=== PATIENT | female | born 1935 | race Caucasian/White ===

== ENCOUNTER 2022-11-03 16:22 | Inpatient (IN) ==
--- NOTE | 2022-11-03 17:17 | ED Triage Note ---
Date of Service November 03, 2022 History of Present Illness This patient was briefly evaluated while in triage. An abbreviated physical exam was performed. This patient is a 87-year-old Male who presents to the ED for evaluation of hematuria, confusion and weakness. Patient states she does not know why she is here, she believes she has arthritis and states her grandson wanted her evaluated. Notes from her facility state that she was recently treated for a UTI and has been confused and weak. Her family is concerned she has cancer and wants her evaluated. Physical Exam VITALS: Vitals are noted on the nurse's note and reviewed by myself. GENERAL: This is an 87-year-old, in no acute distress, sitting in a wheelchair in triage. SKIN: The skin was without rashes. HEART: Regular rate and rhythm without murmurs gallops or rubs. LUNGS: Clear to auscultation bilaterally without wheezes, rales or rhonchi. NEURO: Patient is pleasantly confused. Initial orders for labs and / or imaging were placed and patient was placed in the waiting area until a bed is available. Please see further documentation for the full ED course. MDM / Impression Impression Impression: Urinary tract infection, Confusion
--- NOTE | 2022-11-03 17:59 | XRay Report ---
XR chest 1V portable CLINICAL HISTORY: weakness, confusion TECHNIQUE: Single frontal radiograph of the chest was obtained. Comparison: None available at the time of this dictation. FINDINGS: No lines and tubes are seen. Calcified aortic knob is seen. Elevated right hemidiaphragm is seen. No evidence of pleural effusion or pneumothorax. IMPRESSION: No acute chest disease. ACT 112: Negative or not required by law. Electronically signed by: Balaji Swan M.D. 11/03/2022 5:57 PM
[2022-11-03 19:43] LABS: Basophils # (auto) 0.06 K/uL (0.00-0.20); Basophils % (auto) 0.4 %; Eosinophils # (auto) 0.07 K/uL (0.00-0.50); Eosinophils % (auto) 0.5 %; Hematocrit (blood only) 31.5 % (37.0-47.0); Hemoglobin 10.1 g/dl (12.0-16.0); Immature Granulocytes # (auto) 0.27 K/uL (0.01-0.20); Lymphocytes # (auto) 1.02 K/uL (1.20-3.40); Lymphocytes % (auto) 7.5 %; Mean Corpuscular Hemoglobin 30.1 pg (25.0-34.0); Mean Corpuscular Hgb Conc 32.1 g/dL (32.0-36.0); Mean Platelet Volume 9.6 fL (9.4-12.4); Monocytes # (auto) 0.81 K/uL (0.11-0.59); Neutrophils # (auto) 11.34 K/uL (1.40-6.50); Neutrophils % (auto) 83.6 %; Platelet Count 293 K/uL (130-400); RDW Coefficient of Variation 13.9 % (11.5-14.5); RDW Standard Deviation 47.3 fL (36.4-46.3); Red Blood Count 3.35 M/uL (4.20-5.40); White Blood Count 13.57 K/ul (4.8-10.8)
[2022-11-03 19:50] LABS: Appearance Urine Cloudy (Clear); Bacteria Urine Automated Negative (Negative); Bilirubin Urine Negative (Negative); Blood Urine 2+ (Negative); Color Urine Yellow; Epithelial Cell Urine Auto >30 /lpf (0-5); Glucose Urine UA Negative (Negative); Ketones Urine Negative (Negative); Leukocyte Esterase Urine 1+ (Negative); Nitrite Urine Negative (Negative); Protein Urine 2+ (Negative); Specific Gravity Urine 1.009 (1.000-1.030); Urobilinogen Urine Negative (Negative)
[2022-11-03 20:01] LABS: Alanine Aminotransferase 6 U/L (7-52); Albumin Globulin Ratio 1.3 (0.9-2); Albumin Level 4.3 gm/dl (3.4-5.0); Alkaline Phosphatase 42 U/L (34-104); Anion Gap 9 (3-11); Aspartate Aminotransferase 11 U/L (13-39); BUN Creatinine Ratio 25.7 (10-20); Bilirubin,Total 0.4 mg/dl (0.2-1.0); Blood Urea Nitrogen 26 mg/dl (6-23); Calcium 9.4 mg/dl (8.6-10.3); Carbon Dioxide 22 mmol/L (21-32); Chloride 104 mmol/L (98-107); Globulin 3.3 gm/dl (2.5-4.0); Glucose 105 mg/dl (70-99(Fasting)); Magnesium 2.1 mg/dl (1.7-2.4); Potassium 4.9 mmol/L (3.5-5.1); Sodium 135 mmol/L (136-145); Total Protein 7.6 gm/dl (6.0-8.3)
--- NOTE | 2022-11-03 20:04 | Emergency Department Note ---
History of Present Illness General Chief complaint: Hematuria Stated complaint: BLOOD IN URINE Time Seen by Provider: 11/03/22 19:51 History of Present Illness 87-year-old female presents emergency department reportedly was at [facility] 2 times this week for urinary tract infection and was recently at [facility] urolog. She had urinary retention issues at the time and had a Peres catheter placed by [facility] urolog. Patient is currently on Cipro. Patient [facility] the [facility] today as she was concerned about why she had the Peres catheter and was slightly more confused. Patient provides an excellent history stating that she recently had the Peres catheter placed she is from [place] and that she was brought in by a wheelchair van. Patient has no current complaints of nausea vomiting abdominal pain or fever. There are no other mitigating or alleviating factors Home Medications Medication Instructions Recorded Confirmed Type Unobtainable 10/22/22 10/22/22 History Allergies Allergy/AdvReac Type Severity Reaction Status Date / Time Unable to Assess Allergy Verified 11/03/22 21:15 Past Med/Surg History Social History Smoking Status: Former smoker Hx Alcohol Use: No Hx Substance Use: No Cell Maker Required: No Beliefs That Will Affect Care: Amish Current Living Situation Comment: unsure Feels Safe at Home: Yes Assistive Devices: Cane and Walker Immunizations: Past medical history reviewed in her chart however patient has a history of hypertension, urinary tract infection, arthritis Review of Systems A total of 10 systems reviewed and were otherwise negative Constitutional: no fever and no body aches Physical Exam Vital Signs Vital Signs - 24 hr 11/03/22 17:11 11/03/22 20:37 11/03/22 20:23 Temperature 36.5 C Temperature Source Temporal Artery Scan Pulse Rate 73 60 Pulse Rate [Finger] 58 L Pulse Rhythm Regular Pulse Rhythm [Finger] Regular Respiratory Rate 20 19 Respiratory Effort / Characteristics Non-Labored Spontaneous Respiratory Depth Normal Blood Pressure 130/64 Blood Pressure [Left Arm] 148/66 H Blood Pressure Mean 86 Blood Pressure Mean [Left Arm] 93 Pulse Oximetry 97 98 Oxygen Delivery Method Room Air Sepsis Recent Fever Within 48 Hours No Sepsis New/Unexplained Change in Mental Status No Sepsis Action Taken by Nursing No Action Required GENERAL: Patient is awake alert in no acute distress patient is resting comfortably and showing no signs of anxiety EYES: The conjunctivae are clear. The pupils are round and reactive. EARS, NOSE, MOUTH AND THROAT: The nose is without any evidence of any deformity. Mucous membranes are moist. Tongue is midline. NECK: The neck is nontender and supple. RESPIRATORY: Normal respiratory effort is noted there is no evidence of wheezing rhonchi or rales CARDIOVASCULAR: Regular rate and rhythm noted there no murmurs rubs or gallops normal S1 normal S2. GASTROINTESTINAL: The abdomen is soft. Abdomen is nontender. No rebound rigidity or guarding : Patient has a Peres catheter present BACK: No midline tenderness or or step-off noted range of motion in flexion extension as well as rotation no signs of muscle spasm noted MUSCULOSKELETAL/EXTREMITIES: There is no evidence of gross deformity full range of motion is noted in the hips and shoulders. SKIN: There is no obvious evidence of any rash. There are no petechiae, pallor or cyanosis noted. NEUROLOGIC: Patient is awake alert and oriented x3 strength is symmetric Course Administered Medications Discontinued Medications Ceftriaxone Sodium (Rocephin) 2,000 mg in 70 mls @ 140 mls/hr IV NOW STA Stop: 11/03/22 20:34 Last Infusion: 11/03/22 21:41 Dose: 0 mls/hr Documented By: Admin: 11/03/22 21:00 Dose: 140 mls/hr Documented By: SHARON Miscellaneous (Patient's Height &/Or Weight Needed) 1 each N/A NOW ONE Stop: 11/03/22 22:46 Last Admin: 11/03/22 23:05 Dose: 1 each Documented By: DEBBIE Medical Decision Making Medical Records Attestation: I reviewed the patient's medical records. Home Medications Current Medication List: was personally reviewed by me Laboratory Data Attestation: I reviewed the patient's lab results. Lab results interpreted by me show urinary tract infection 11/03/22 19:04 11/03/22 19:04 Lab Results 11/03/22 11/03/22 11/03/22 Range/Units 19:04 19:04 19:04 WBC 13.57 H (4.8-10.8) K/ul RBC 3.35 L (4.20-5.40) M/uL Hgb 10.1 L (12.0-16.0) g/dl Hct 31.5 L (37.0-47.0) % MCV 94.0 (80.0-100.0) fL MCH 30.1 (25.0-34.0) pg MCHC 32.1 (32.0-36.0) g/dL RDW Std Deviation 47.3 H (36.4-46.3) fL RDW Coeff of Mirna 13.9 (11.5-14.5) % Plt Count 293 (130-400) K/uL MPV 9.6 (9.4-12.4) fL Immature Gran % (Auto) 2.0 % Neut % (Auto) 83.6 % Lymph % (Auto) 7.5 % [place] % (Auto) 6.0 % Eos % (Auto) 0.5 % Baso % (Auto) 0.4 % Neut # (Auto) 11.34 H (1.40-6.50) K/uL Lymph # (Auto) 1.02 L (1.20-3.40) K/uL [place]idan # (Auto) 0.81 H (0.11-0.59) K/uL Eos # (Auto) 0.07 (0.00-0.50) K/uL Baso # (Auto) 0.06 (0.00-0.20) K/uL Immature Gran # (Auto) 0.27 H (0.01-0.20) K/uL PT 11.0 (9.0-12.0) Seconds INR 1.0 (0.9-1.1) APTT 26.0 (21.0-31.0) Seconds PTT Ratio 0.9 Sodium 135 L (136-145) mmol/L Potassium 4.9 (3.5-5.1) mmol/L Chloride 104 (98-107) mmol/L Carbon Dioxide 22 (21-32) mmol/L Anion Gap 9 (3-11) BUN 26 H (6-23) mg/dl Creatinine 1.01 (0.6-1.2) mg/dl Est Cr Clr Drug Dosing Not Reportable Est GFR ( Amer) 58.0 ml/min Est GFR (Non-Af Amer) 50.0 ml/min BUN/Creatinine Ratio 25.7 H (10-20) Glucose 105 H (70-99(Fasting)) mg/dl Lactate (0.4-2.0) mmol/L Calcium 9.4 (8.6-10.3) mg/dl Magnesium 2.1 (1.7-2.4) mg/dl Total Bilirubin 0.4 (0.2-1.0) mg/dl AST 11 L (13-39) U/L ALT 6 L (7-52) U/L Alkaline Phosphatase 42 (34-104) U/L Total Protein 7.6 (6.0-8.3) gm/dl Albumin 4.3 (3.4-5.0) gm/dl Globulin 3.3 (2.5-4.0) gm/dl Albumin/Globulin Ratio 1.3 (0.9-2) Urine Color Urine Appearance (Clear) Urine pH (4.5-7.5) Ur Specific [place] (1.000-1.030) Urine Protein (Negative) Urine Glucose (UA) (Negative) Urine Ketones (Negative) Urine Blood (Negative) Urine Nitrite (Negative) Urine Bilirubin (Negative) Urine Urobilinogen (Negative) Ur Leukocyte Esterase (Negative) Urine WBC (Auto) (0-5) /hpf Urine RBC (Auto) (0-4) /hpf U Hyaline Cast (Auto) (0-5) /lpf U Epithel Cells (Auto) (0-5) /lpf Urine Bacteria (Auto) (Negative) Ur Renal Epithelial Cell Urine Yeast (None Prsent) SARS-CoV-2, RNA, NAAT (NEGATIVE) 11/03/22 11/03/22 11/03/22 Range/Units 19:18 20:22 20:28 WBC (4.8-10.8) K/ul RBC (4.20-5.40) M/uL Hgb (12.0-16.0) g/dl Hct (37.0-47.0) % MCV (80.0-100.0) fL MCH (25.0-34.0) pg MCHC (32.0-36.0) g/dL RDW Std Deviation (36.4-46.3) fL RDW Coeff of Mirna (11.5-14.5) % Plt Count (130-400) K/uL MPV (9.4-12.4) fL Immature Gran % (Auto) % Neut % (Auto) % Lymph % (Auto) % [place] % (Auto) % Eos % (Auto) % Baso % (Auto) % Neut # (Auto) (1.40-6.50) K/uL Lymph # (Auto) (1.20-3.40) K/uL [place] # (Auto) (0.11-0.59) K/uL Eos # (Auto) (0.00-0.50) K/uL Baso # (Auto) (0.00-0.20) K/uL Immature Gran # (Auto) (0.01-0.20) K/uL PT (9.0-12.0) Seconds INR (0.9-1.1) APTT (21.0-31.0) Seconds PTT Ratio Sodium (136-145) mmol/L Potassium (3.5-5.1) mmol/L Chloride (98-107) mmol/L Carbon Dioxide (21-32) mmol/L Anion Gap (3-11) BUN (6-23) mg/dl Creatinine (0.6-1.2) mg/dl Est Cr Clr Drug Dosing Est GFR ( Amer) ml/min Est GFR (Non-Af Amer) ml/min BUN/Creatinine Ratio (10-20) Glucose (70-99(Fasting)) mg/dl Lactate 1.0 (0.4-2.0) mmol/L Calcium (8.6-10.3) mg/dl Magnesium (1.7-2.4) mg/dl Total Bilirubin (0.2-1.0) mg/dl AST (13-39) U/L ALT (7-52) U/L Alkaline Phosphatase (34-104) U/L Total Protein (6.0-8.3) gm/dl Albumin (3.4-5.0) gm/dl Globulin (2.5-4.0) gm/dl Albumin/Globulin Ratio (0.9-2) Urine Color Yellow Urine Appearance Cloudy A (Clear) Urine pH 5.0 (4.5-7.5) Ur Specific [place] 1.009 (1.000-1.030) Urine Protein 2+ H (Negative) Urine Glucose (UA) Negative (Negative) Urine Ketones Negative (Negative) Urine Blood 2+ H (Negative) Urine Nitrite Negative (Negative) Urine Bilirubin Negative (Negative) Urine Urobilinogen Negative (Negative) Ur Leukocyte Esterase 1+ H (Negative) Urine WBC (Auto) 10-30 H (0-5) /hpf Urine RBC (Auto) 10-30 H (0-4) /hpf U Hyaline Cast (Auto) 1-5 (0-5) /lpf U Epithel Cells (Auto) >30 H (0-5) /lpf Urine Bacteria (Auto) Negative (Negative) Ur Renal Epithelial Cell Not Reportable Urine Yeast Present A (None Prsent) SARS-CoV-2, RNA, NAAT NEGATIVE (NEGATIVE) Imaging Data Attestation: I personally reviewed and interpreted this imaging study as follows: My Impression: Chest x-ray interpreted by me negative for infiltrate Radiologist's Impression: Chest X-Ray 11/03/22 17:13 XR chest 1V portable CLINICAL HISTORY: weakness, confusion TECHNIQUE: Single frontal radiograph of the chest was obtained. Comparison: None available at the time of this dictation. FINDINGS: No lines and tubes are seen. Calcified aortic knob is seen. Elevated right hemidiaphragm is seen. No evidence of pleural effusion or pneumothorax. IMPRESSION: No acute chest disease. ACT 112: Negative or not required by law. Electronically signed by: Balaji Swan M.D. 11/03/2022 5:57 PM [facility] Narrative Medical decision making differential diagnosis includes urinary tract infection, Peres catheter problems, pyelonephritis, sepsis, metabolic derangement, dehy dration Plan is to check labs, urinalysis, labs were ordered by the provider in triage prior to my arrival External medical records from the [facility] were reviewed by me Impression & Plan Urinary tract infection, Confusion Discharge Plan Visit Data Chief Complaint: Hematuria Stated Complaint: BLOOD IN URINE ED Provider: Grzegorz Babcock Discharge Problem: Urinary tract infection, Confusion Patient Disposition: Admitted As Inpatient Discharge Instructions Interventions: ED Discharge Assessment Last Done: 11/03/22 22:33
[2022-11-03] MEDS ORDERED: cefTRIAXone SODIUM 2,000 MG/70 ML BAG IV STA (20:05)
[2022-11-03 20:48] LABS: Partial Thromboplastin Ratio 0.9
--- NOTE | 2022-11-03 21:25 | History & Physical Report ---
Date of Service November 03, 2022 Assessment & Plan (1) Hematuria: Plan: -Hematuria likely multifactorial- possible UTI in setting of suspected anatomic cause underlying urinary retention -Coagulation studies unremarkable -Hgb 10.1 on admission, unclear if at baseline -Given UA findings and confusion, will continue treatment of possible UTI with ceftriaxone -UCx pending, BCx pending -Urology consulted for AM -Pt made NPO midnight in case of potential procedure in AM with urology -Trend CBC (2) Urinary retention with incomplete bladder emptying: Plan: -Normal renal function on admission -Peres catheter in place -Bladder scan PRN -Urology consult as above (3) Confusion: Plan: -I suspect pt has cognitive impairment secondary to dementia given her inconsistent provision of history and fixation on her grandson's "instigation" of her hospitalization -This may represent acute confusion given possible UTI as well -This will need to be clarified with family in AM Plan FENGI: Regular Code status: Full DVT prophylaxis: SCDs given hematuria Isolation: None Disposition: Medical/surgical History of Present Illness Chief Complaint: Hematuria Primary Care Provider: NO PCP Pt is 87 yo F with PMH arthritis presenting with hematuria. Pt resides in [place] by herself at [facility], states her daughter and grandson (whom she refers to as "instigating" this series of events) sought to have her evaluated at [facility] for ongoing urinary issues and arranged to have her brought from [place] to [place] today through the [facility] transport. She had previously received care at [facility] but states it has been several years since she has seen a physician. She reports only arthritis as part of her medical history and denies any allergies or home medications. She denies dysuria and frequency, though does state hematuria has improved. She is unsure why she has a Peres catheter placed. Per chart review from ED note and 10/22 [facility] urology report, pt was reportedly at [facility] in [place] twice this week for a UTI. Pt is reportedly taking ciprofloxacin per chart review but she cannot recall being on any antibiotics. I attempted to contact her family members for further clarification but was not able to reach them. Pt seen by urology on 10/22 for urinary incontinence- reportedly was on Myrbetriq + oxybutynin in past to no relief, had PVR with 700 ccs, and Peres placed in office. Plans made for CT urogram and cystoscopy to evaluate urinary retention Pt arrived to ER hemodynamically stable. Initial evaluation significant for WBC 13.6, Hgb 10.1, unremarkable BMP, coagulation studies. UA positive for LE, bacteria, WBCs, RBCs, blood, epithelial cells. ER interventions include ceftriaxone. At present, pt reports no complaints, states hematuria has improved. She is unsure about why she is hospitalized and stated multiple times her grandson "instigated" this hospitalization. Allergies Allergy/AdvReac Type Severity Reaction Status Date / Time adhesive tape Allergy Unknown Verified 11/04/22 15:41 infliximab [From Remicade] Allergy Unknown Verified 11/04/22 15:41 Home Medications Medication Instructions Recorded Confirmed Type Head And Shoulders See Rx Instructions .Route .COMPLEX 11/04/22 11/04/22 History acetaminophen 325 mg tablet 650 mg PO Q4H PRN pain or fever 11/04/22 11/04/22 History >100 acetaminophen 500 mg tablet 500 mg PO QID pain 11/04/22 11/04/22 History amitriptyline 50 mg tablet 50 mg PO HS depression 11/04/22 11/04/22 History camphor-menthol 0.2 %-3.5 % See Rx Instructions .Route .COMPLEX 11/04/22 11/04/22 History topical gel cholecalciferol (vitamin D3) 50 50 mcg PO DAILY 11/04/22 11/04/22 History mcg (2,000 unit) tablet (Vitamin D3) ciprofloxacin HCl 500 mg tablet 500 mg PO Q12H UTI 11/04/22 11/04/22 History clonidine 0.2 mg/24 hr weekly 1 patch transdermal .FRIDAYS HTN 11/04/22 11/04/22 History transdermal patch cyanocobalamin (vitamin B-12) 1,000 mcg PO DAILY 11/04/22 11/04/22 History 1,000 mcg tablet,extended release hydralazine 50 mg tablet 50 mg PO BID HTN 11/04/22 11/04/22 History hydroxychloroquine 200 mg tablet 200 mg PO BID rheumatoid arthritis 11/04/22 11/04/22 History levothyroxine 100 mcg tablet 100 mcg PO QAM 11/04/22 11/04/22 History lisinopril 10 mg tablet 5 mg PO DAILY 11/04/22 11/04/22 History loperamide 2 mg capsule 2 mg PO Q4H PRN Diarrhea 11/04/22 11/04/22 History magnesium hydroxide 400 mg/5 mL 30 ml PO DAILY PRN If no BM x 3 11/04/22 11/04/22 History oral suspension (Milk of Magnesia) days metoprolol succinate 50 mg 50 mg PO QAM HTN 11/04/22 11/04/22 History tablet,extended release 24 hr miconazole nitrate 2 % vaginal See Rx Instructions .Route 11/04/22 11/04/22 History cream (Monistat 7) .COMPLEX YEAST INFECTION peppermint oil 90 mg 180 mg PO TID diarrhea 11/04/22 11/04/22 History capsule,delayed,extended release (IBgard) phenyleph-shark liver 1 applic MI QID PRN Pain 11/04/22 11/04/22 History hvq-jngkep-kau rectal cream prednisone 2.5 mg tablet See Rx Instructions .Route 11/04/22 11/04/22 History .COMPLEX RHEUMATOID ARTHRITIS prednisone 5 mg tablet See Rx Instructions .Route 11/04/22 11/04/22 History .COMPLEX RHEUMATOID ARTHRITIS spironolactone 25 mg tablet 25 mg PO DAILY HTN 11/04/22 11/04/22 History tramadol 50 mg tablet 50 mg PO Q6H PRN Pain 11/04/22 11/04/22 History Past Med/Surg History Medical History (Updated 11/04/22 @ 19:14 by Kaia Stern MD) Dementia Depression HTN (hypertension), benign Urinary incontinence Urinary retention with incomplete bladder emptying Social History Smoking Status: Former smoker Hx Alcohol Use: No Hx Substance Use: No Communication Ability: Impaired Termite Renewal Inspector Required: No Beliefs That Will Affect Care: Nondenominational Current Living Situation Comment: unsure Feels Safe at Home: Yes Assistive Devices: Cane and Walker Review of Systems Review of Systems: Per HPI Physical Exam Physical Exam: General: well-appearing, no acute distress HEENT: PERRL, EOMI, conjunctivae clear without injection, anicteric sclerae, moist mucous membranes, clear oropharynx without exudate or erythema Neck: supple, trachea midline, no thyromegaly, no JVD, no cervical lymphadenopathy CV: RRR, normal S1 and S2, no murmurs Resp: CTAB, no increased work of breathing, no crackles or wheezes Abd: Soft, nontender, nondistended, no guarding or rebound, no hepatosplenomegaly : Peres with pink-tinged urine MSK: Normal bulk of all four extremities Neuro: AOx3, no focal motor or sensory deficits Skin: no rashes or lesions, warm and dry Ext: no LE peripheral edema or erythema, capillary refill <2s in all four extremities, 2+ LE peripheral pulses b/l Results & Data Results & Data Vital Signs (Past 12 Hours) Vital Signs Temp Pulse Pulse Resp BP BP Pulse Ox 11/03/22 20:23 58 L 19 148/66 H 98 11/03/22 20:37 60 11/03/22 17:11 36.5 C 73 20 130/64 97 O2 Del Method 11/03/22 20:23 11/03/22 20:37 11/03/22 17:11 Room Air Code Status & VTE Plan VTE Prophylaxis Plan VTE Prophylaxis will be ordered: Yes Supervising Physician Co-Signing Physician Notes Attending addendum: I have physically seen this patient, have supervised the medical residents activities, and agree with the H&P unless as otherwise noted. Assessment and Plan: Hematuria/urinary retention/UTI- Continue Peres catheter On Cipro as outpatient, which will be held Follow urine culture and sensitivity Continue ceftriaxone 2 g IV daily IVF's as noted Consult urology, who has been following patient in the outpatient setting Confusion- Likely metabolic encephalopathy from above, aggravating underlying dementia Remaining orders and notations as noted Resident Activity Tracking Resident Involvement: Resident Care Provided Care Provided: Adult [facility]
[2022-11-03] MEDS ORDERED: ONDANSETRON INJ 2 MG/ML 2 ML VIAL IV PRN (22:37)
[2022-11-03] MEDS ORDERED: Patient's HEIGHT &/or WEIGHT Needed ONE (22:45)
[2022-11-03] MEDS: ACETAMINOPHEN 325 MG TAB PO PRN (23:15)
[2022-11-04 07:27] LABS: Hematocrit (blood only) 26.7 % (37.0-47.0); Hemoglobin 8.6 g/dl (12.0-16.0); Mean Corpuscular Hemoglobin 29.5 pg (25.0-34.0); Mean Corpuscular Hgb Conc 32.2 g/dL (32.0-36.0); Mean Corpuscular Volume 91.4 fL (80.0-100.0); Mean Platelet Volume 9.8 fL (9.4-12.4); Platelet Count 215 K/uL (130-400); RDW Standard Deviation 47.1 fL (36.4-46.3); Red Blood Count 2.92 M/uL (4.20-5.40)
--- NOTE | 2022-11-04 07:38 | Urology Consultation ---
Date of Consultation November 04, 2022 Assessment & Plan (1) Urinary retention with incomplete bladder emptying: (2) Hematuria: (3) Urinary tract infection: 87-year-old female admitted for confusion, hematuria, and suspected urinary tract infection. Afebrile and hemodynamically stable Labs reviewedcreatinine 0.95, WBC 9.1, hemoglobin 8.6 Urine and blood cultures are pending - follow cultures Continue broad-spectrum antibiotics and narrow per sensitivity data when available Hematuria seems to be clearingcontinue to monitor Maintain Peres catheter Recommend imaging with CT A/P wo con now CT reviewed and no obstruction visualized No acute surgical intervention warranted at this time - patient can resume diet Continue supportive care, antibiotics and medical management per hospital service Plan to continue work-up with cystoscopy as outpatient pending clinical course will follow History of Present Illness Reason for Consultation: Hematuria, incontinence Requesting Physician: Dr. Horvath Attending Physician: Kaia Stern MD History of Present Illness This is an 87-year-old female who presented to the emergency department on 11/03/[address] [facility] for evaluation of confusion, weakness, hematuria. She reportedly was evaluated at [facility] in [place] 2 times this week for urinary tract infection and was on Ciprofloxacin. She was recently evaluated at [facility] urology on 10/22/2022 for incontinence and was found to have urinary retention, Peres catheter was placed during visit with plans for further work-up with CT and cystoscopy. On arrival, she was afebrile and hemodynamically stable. Lab work reviewed and showed WBC 13.57, hemoglobin 10.1, creatinine 1.01, sodium 135. Lactate 1.1. Urinalysis notable for 2+ protein, 2+ blood, 1+ LE, 10-30 WBC, 10-30 RBC, >30 epithelial cells, negative for bacteria, yeast present. She was treated with IV ceftriaxone in the emergency department. She was admitted for further evaluation and management. Urology is consulted for hematuria and incontinence. Chart reviewed: Afebrile, today's labs - creatinine 0.95, WBC 9.10, Hgb 8.6. UC and BCx pending. On IV Ceftriaxone. Patient seen and examined at bedside this morning. She is awake, alert and resting in bed. Denies flank, abdominal or suprapubic discomfort. Peres patent and draining clear yellow urine, 1 small clot noted in tubing which easily passed through. Denies nausea, vomiting, fever or chills. History and ROS are limited due to cognitive status. She is not oriented to time or situation. She does not recall being seen in the outpatient urology office. She tells me she arrived from [place] yesterday. Allergies Allergy/AdvReac Type Severity Reaction Status Date / Time Unable to Assess Allergy Verified 11/03/22 21:15 Home Medications Medication Instructions Recorded Confirmed Type Unobtainable 10/22/22 10/22/22 History Patient History Social History Smoking Status: Former smoker Hx Alcohol Use: No Hx Substance Use: No Scaffold Worker Required: No Beliefs That Will Affect Care: Jehovah'S Witness Current Living Situation Comment: unsure Feels Safe at Home: Yes Assistive Devices: Cane and Walker Review of Systems Review of Systems: Unobtainable due to cognitive status Physical Exam Physical Exam: General: well-appearing, no acute distress HEENT: Normocephalic Pulmonary: Nonlabored respirations Abdomen: Nondistended Extremities: Moves all 4 spontaneously, deformities of finger joints Neuro: No gross deficits Psych: alert and oriented to person Skin: Warm, dry, no rashes noted : Peres patent and draining clear yellow urine, 1 small clot noted in tubing which easily passed through Results & Data Vital Signs (Past 12 Hours) Vital Signs Temp Pulse Pulse Resp BP Pulse Ox O2 Del Method 11/03/22 22:54 36.6 C 64 16 153/54 H 95 Room Air 11/03/22 22:41 36.6 C 64 18 153/54 H 95 Room Air 11/03/22 22:00 62 17 165/84 H 97 11/03/22 20:23 58 L 19 148/66 H 98 11/03/22 20:37 60 PG Care Time/CCT Total # of Minutes Spent Total Time Spent with Patient: Total time spent is greater than 50% in coordination of care (as documented) at patient's floor/unit and/or counseling patient: Coding Level of Care Code 31045 INT INP/OBS CARE 2/55MIN Diagnoses Urinary retention with incomplete bladder emptying R33.9 Hematuria R31.9 Urinary tract infection N39.0 Time Spent (min) 60
[2022-11-04 07:43] LABS: BUN Creatinine Ratio 24.2 (10-20); Calcium 8.6 mg/dl (8.6-10.3); Est GFR (African American) 62.4 ml/min; Est GFR (Non-African American) 53.9 ml/min; Potassium 4.4 mmol/L (3.5-5.1)
[2022-11-04] MEDS: cefTRIAXone SODIUM 1,000 MG in DEXTROSE 5% 50 ML IV SCH (08:36)
--- NOTE | 2022-11-04 09:43 | CT Scan Report ---
CT abd pelvis wo con CLINICAL HISTORY: Urinary retention, hematuria TECHNIQUE: Helical axial images of the abdomen and pelvis were obtained. Automated dose lowering tech niques and/or adjustment according to patient size were utilized for this exam. This exam was perfor med without intravenous contrast. CT DOSE: 1051.71 mGy.cm COMPARISON: None available at the time of this dictation. FINDINGS: Lower chest: Bibasilar atelectasis versus scarring is seen. There is a 4 mm pleural-based nodule in the left lower lobe (series 3 image 34). Liver: Unremarkable. No focal lesions are seen. Gallbladder and biliary tree: No calcified gallstones. Normal caliber wall. No intra- or extrahepatic biliary ductal dilation. Pancreas: Unremarkable, no focal lesions. Spleen: Unremarkable. Adrenals: Unremarkable. Kidneys and ureters: Unremarkable. Bladder: Peres catheter is seen. Reproductive organs: Unremarkable. Bowel: A hiatal hernia is seen. Lymph nodes Retroperitoneal: Unremarkable. Pelvic: Unremarkable. Mesenteric: Unremarkable. Peritoneum: Trace pelvic free fluid. Nonspecific pelvic calcifications are seen, likely chronic. Vessels: Atherosclerotic calcifications are seen. Abdominal wall: Unremarkable. Bones: Degenerative changes in the visualized spine. Postsurgical changes of decompression are seen i n the lower lumbar spine. 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 Old healed fractures of the left hem ipelvis are seen along with extensive degenerative changes of the sacroiliac joints. IMPRESSION: No acute abnormality and in particular no evidence of urothelial lesion in this patient with hematuri a. Evaluation of the bladder is limited by Peres catheter placement. ACT 112: Negative or not required by law. Electronically signed by: Balaji Swan M.D. 11/04/2022 9:40 AM
[2022-11-04] MEDS: ACETAMINOPHEN 325 MG TAB PO PRN (11:25)
[2022-11-04] MEDS ORDERED: MAGNESIUM HYDROXIDE SUSP 30 ML UDC PO PRN (15:12)
[2022-11-04] MEDS ORDERED: traMADol HCL 50 MG TABLET PO PRN (15:12)
--- NOTE | 2022-11-04 15:24 | Hospitalist Progress Note ---
Date of Service November 04, 2022 Assessment & Plan (1) Hematuria: Plan: -Hematuria likely multifactorial- possible UTI in setting of suspected anatomic cause underlying urinary retention -Given dementia, there is possibility she may be pulling at the Peres catheter and causing trauma -Hematuria is now cleared up Hemoglobin dropped to 8.6 from 10.1 but this may be somewhat hemodilutional. Unclear baseline of hemoglobin -Coagulation studies unremarkable -She was on Cipro twice daily given to her by the ER in [place] the day prior to admission -Continue ceftriaxone and follow urine cultures, blood cultures CT abdomen/pelvis without significant findings -Needs outpatient cystoscopy and CT urogram of the kidneys -Appreciate urology consultation (2) Urinary tract infection: Plan: As noted above (3) Metabolic encephalopathy: Plan: Metabolic encephalopathy Secondary to UTI and urinary retention with hematuria Improving, now at baseline dementia (4) Anemia: Plan: Somewhat chronic most likely but unclear baseline Normocytic Check iron studies, B12, folate, TSH in the morning Some blood loss anemia from hematuria as well (5) Urinary retention with incomplete bladder emptying: Plan: -Normal renal function on admission -Peres catheter in place since urology office 2 weeks ago -Bladder scan PRN -Urology consult as above (6) HTN (hypertension), benign: Plan: Blood pressures are stable Restart home blood pressure medicines of clonidine patch, hydralazine, lisinopril, spironolactone (7) Dementia: Plan: Stable, lives in personal care facility Supportive care (8) Depression: Plan: Restart home amitriptyline (9) Rheumatoid arthritis: Plan: With chronic deformities of the hands and feet -Restart home hydroxychloroquine, daily prednisone No stress dose steroids needed Tramadol and Tylenol as needed for pain as a home med Plan DVT prophylaxis-SCDs given hematuria Disposition-continued stay, PT/OT consults placed and will need SNF placement most likely Admission and Anticipated Discharge Date Admission Date: November 03, 2022 Subjective Patient reports she feels well. No further blood in the Peres catheter. She thinks she just arrived here from [place] yesterday. I discussed her care with her grandson on the phone. He reports she has been living at personal usp at [facility] in [place] for the last 2 years. Patient has dementia but he thinks she is little bit more confused than usual as she has been back and forth to the ER in [place] as well as the urology office at [facility] and to the half-way facility at her complex several times over the last 2 weeks. Physical Exam Constitutional: WD/WN, vitals as above Respiratory: normal respiratory effort, lungs clear to auscultation Cardiovascular: RRR, no murmur, no edema Gastrointestinal (Abdomen): normal bowel sounds, soft, nontender, no hepatosplenomegaly Psychiatric: Orientation: alert, oriented to person and cooperative; + not oriented to place and + not oriented to time Genitourinary: Peres in place draining clear yellow urine Results & Data Results & Data Vital Signs (Past 12 Hours) Vital Signs Temp Pulse Resp BP Pulse Ox O2 Del Method 11/04/22 08:18 36.9 C 69 17 123/71 95 Room Air Laboratory Results CBC, BMP reviewed Urine culture pending Blood cultures no growth to date PG Care Time/CCT Total # of Minutes Spent Total Time Spent with Patient: Total time spent is greater than 50% in coordination of care (as documented) at patient's floor/unit and/or counseling patient: Coding Level of Care Code 64049 SUB INP/OBS CARE 2/35MIN Diagnoses Hematuria R31.9 Urinary tract infection N39.0 Metabolic encephalopathy G93.41 Anemia D64.9 Urinary retention with incomplete bladder emptying R33.9 HTN (hypertension), benign I10 Dementia F03.90 Depression F32.A Rheumatoid arthritis M06.9
[2022-11-04] MEDS: predniSONE 5 MG TAB PO SCH (16:05)
[2022-11-04] MEDS: CHECK CLONIDINE PATCH PLACEMENT SCH (16:05)
[2022-11-04] MEDS: predniSONE 2.5 MG TAB PO SCH (16:05)
[2022-11-04] MEDS: METOPROLOL SUCC 50MG EXT REL TAB PO SCH (16:06)
[2022-11-04] MEDS: SPIRONOLACTONE 25 MG TAB PO SCH (16:25)
--- NOTE | 2022-11-04 20:39 | Billing Data ---
Date of Service November 04, 2022 Coding Level of Care Code 86759 INT INP/OBS CARE
[2022-11-04] MEDS: hydrALAZINE TAB 50 MG TAB PO SCH (21:51)
[2022-11-04] MEDS: AMITRIPTYLINE HCL 50 MG TAB PO SCH (21:51)
[2022-11-04] MEDS: HYDROXYCHLOROQUINE SULFATE 200 MG TAB PO SCH (21:51)
[2022-11-05] MEDS: CHECK CLONIDINE PATCH PLACEMENT SCH ×3 (01:00→15:11)
[2022-11-05] MEDS: LEVOTHYROXINE SODIUM 100 MCG TABLET PO SCH (05:23)
[2022-11-05 07:15] LABS: Basophils # (auto) 0.08 K/uL (0.00-0.20); Basophils % (auto) 0.9 %; Eosinophils # (auto) 0.13 K/uL (0.00-0.50); Eosinophils % (auto) 1.5 %; Hemoglobin 8.9 g/dl (12.0-16.0); Immature Granulocytes # (auto) 0.27 K/uL (0.01-0.20); Immature Granulocytes % (auto) 3.1 %; Lymphocytes # (auto) 1.13 K/uL (1.20-3.40); Lymphocytes % (auto) 13.1 %; Mean Corpuscular Hemoglobin 29.6 pg (25.0-34.0); Mean Corpuscular Hgb Conc 31.8 g/dL (32.0-36.0); Mean Platelet Volume 9.7 fL (9.4-12.4); Monocytes # (auto) 0.61 K/uL (0.11-0.59); Monocytes % (auto) 7.1 %; Neutrophils # (auto) 6.38 K/uL (1.40-6.50); Neutrophils % (auto) 74.3 %; Platelet Count 223 K/uL (130-400); RDW Coefficient of Variation 13.9 % (11.5-14.5); RDW Standard Deviation 47.5 fL (36.4-46.3); Red Blood Count 3.01 M/uL (4.20-5.40)
[2022-11-05 07:38] LABS: BUN Creatinine Ratio 23.3 (10-20); Calcium 8.9 mg/dl (8.6-10.3); Creatinine Clr Calc Pharmacy 32.3 ml/min; Est GFR (African American) 56.6 ml/min; Est GFR (Non-African American) 48.8 ml/min; Magnesium 1.9 mg/dl (1.7-2.4); Potassium 4.6 mmol/L (3.5-5.1)
[2022-11-05 07:56] LABS: Ferritin 115.5 ng/ml (8-388)
[2022-11-05 08:20] LABS: Folate (Folic Acid),Ser orPlas 6.9 ng/ml (>5.38)
[2022-11-05] MEDS: cefTRIAXone SODIUM 1,000 MG in DEXTROSE 5% 50 ML IV SCH (08:51)
[2022-11-05] MEDS: CHOLECALCIFEROL 1,000 UNITS 25 MCG TAB PO SCH (08:52)
[2022-11-05] MEDS: lisinopril 5 MG TAB PO SCH (08:52)
[2022-11-05] MEDS: CYANOCOBALAMIN (B-12) 500 MCG TABLET PO SCH (08:52)
[2022-11-05] MEDS: predniSONE 2.5 MG TAB PO SCH (08:52)
[2022-11-05] MEDS: predniSONE 5 MG TAB PO SCH (08:52)
[2022-11-05] MEDS: SPIRONOLACTONE 25 MG TAB PO SCH (08:52)
[2022-11-05] MEDS: METOPROLOL SUCC 50MG EXT REL TAB PO SCH (08:52)
[2022-11-05] MEDS: HYDROXYCHLOROQUINE SULFATE 200 MG TAB PO SCH ×2 (08:52→21:02)
[2022-11-05] MEDS: hydrALAZINE TAB 50 MG TAB PO SCH ×2 (08:52→21:02)
[2022-11-05] MEDS: ACETAMINOPHEN 325 MG TAB PO PRN ×2 (08:59→13:56)
--- NOTE | 2022-11-05 09:34 | Urology Progress Note ---
Date of Service November 05, 2022 Assessment & Plan (1) Urinary retention with incomplete bladder emptying: (2) Hematuria: Plan: 87-year-old female admitted for confusion, hematuria, and suspected urinary tract infection. Afebrile and hemodynamically stable Labs reviewedcreatinine 1.03, WBC 8.6, hemoglobin 8.9 Urine culture showing pin point growth re-incubating BCx showing no growth x 24 hours Continue broad-spectrum antibiotics and narrow per sensitivity data when available Hematuria has cleared Maintain Peres catheter until urology follow-up Continue supportive care, antibiotics and medical management per hospital service Cultures may return negative since she was on antibiotics prior to arrival Can obtain outside cultures if available to direct ongoing treatment Plan to continue work-up with cystoscopy as outpatient pending clinical course will sign off, contact our service with any additional questions Admission and Anticipated Discharge Date Admission Date: November 03, 2022 Subjective Patient seen and examined at bedside this morning, chart reviewed No acute issues overnight Peres patent and draining clear yellow urine No abdominal, suprapubic or flank discomfort Denies nausea, vomiting, fever or chills Review of Systems Constitutional: as per Subjective / HPI Gastrointestinal: as per Subjective / HPI Genitourinary: as per Subjective / HPI Physical Exam Physical Exam: General: well-appearing, no acute distress HEENT: Normocephalic Pulmonary: Nonlabored respirations Abdomen: Nondistended Extremities: Moves all 4 spontaneously, deformities of finger joints Neuro: No gross deficits Psych: alert and oriented to person Skin: Warm, dry, no rashes noted : Peres patent and draining clear yellow urine Results & Data Vital Signs (Past 12 Hours) Vital Signs Temp Pulse Resp BP Pulse Ox O2 Del Method 11/05/22 08:50 74 11/05/22 07:46 36.5 C 57 L 20 158/79 H 97 Room Air 11/04/22 21:49 37.2 C 66 18 118/59 L 95 Room Air PG Care Time/CCT Total # of Minutes Spent Total Time Spent with Patient: Total time spent is greater than 50% in coordination of care (as documented) at patient's floor/unit and/or counseling patient: Coding Level of Care Code 38846 SUB INP/OBS CARE 1/25MIN Diagnoses Urinary retention with incomplete bladder emptying R33.9 Hematuria R31.9
--- NOTE | 2022-11-05 16:32 | Hospitalist Progress Note ---
Date of Service November 05, 2022 Assessment & Plan (1) Hematuria: Plan: -Hematuria likely multifactorial- possible UTI in setting of suspected anatomic cause underlying urinary retention -Given dementia, there is possibility she may be pulling at the Peres catheter and causing trauma -Hematuria is now cleared up Hemoglobin dropped to 8.6 from 10.1 but this may be somewhat hemodilutional. Unclear baseline of hemoglobin. Hgb remains stable today at 8.9 -Coagulation studies unremarkable -She was on Cipro twice daily given to her by the ER in [place] the day prior to admission -Continue ceftriaxone;urine culture with Kelli likely colonization or contamination and does not need treatment -follow blood cultures-NGTD -CT abdomen/pelvis without significant findings -Needs outpatient cystoscopy and CT urogram of the kidneys-f/u after abx course completed-likely in 1-2 weeks -Appreciate urology consultation (2) Urinary tract infection: Plan: As noted above (3) Metabolic encephalopathy: Plan: Metabolic encephalopathy Secondary to UTI and urinary retention with hematuria Improving, now with baseline dementia (4) Anemia: Plan: Somewhat chronic most likely but unclear baseline Normocytic, stable today at 8.9 Checked iron studies, B12, folate, TSH -all normal Some blood loss anemia from hematuria as well (5) Urinary retention with incomplete bladder emptying: Plan: -Normal renal function on admission -Peres catheter in place since urology office 2 weeks ago -Bladder scan PRN -Urology consult as above (6) HTN (hypertension), benign: Plan: Blood pressures are stable cont home blood pressure medicines of clonidine patch, hydralazine, lisinopril, spironolactone (7) Dementia: Plan: Stable, lives in personal care facility Supportive care Remains convinced that she still lives in [place] after grandson reports she has lived in [facility] in [place] since 2020 (8) Depression: Plan: cont home amitriptyline (9) Rheumatoid arthritis: Plan: With chronic deformities of the hands and feet Cont home hydroxychloroquine, daily prednisone No stress dose steroids needed Tramadol and Tylenol as needed for pain as a home med Plan DVT prophylaxis-SCDs given hematuria Disposition-medically stable for discharge but continued stay while awaiting bed at [facility]--> plan for discharge tomorrow at [address] [facility] at [facility] Admission and Anticipated Discharge Date Admission Date: November 03, 2022 Subjective Pt remains argumentative and is convinced that she lives in [place] and wants to know how she will get back to her Urology appt in [place] if she's living in [place]. Otherwise states she walked around today, is eating, denies abd pains. Says she feels totally fine. No blood in urine Physical Exam Constitutional: WD/WN, vitals as above Respiratory: normal respiratory effort, lungs clear to auscultation Cardiovascular: RRR, no murmur, no edema Gastrointestinal (Abdomen): normal bowel sounds, soft, nontender, no hepatosplenomegaly Psychiatric: Orientation: alert, oriented to person and cooperative; + not oriented to place and + not oriented to time Results & Data Results & Data Vital Signs (Past 12 Hours) Vital Signs Temp Pulse Resp BP Pulse Ox O2 Del Method 11/05/22 16:01 37.1 C 69 18 105/67 93 Room Air 11/05/22 08:50 74 11/05/22 07:46 36.5 C 57 L 20 158/79 H 97 Room Air Laboratory Results CBC, BMP, iron studies, B12, folate, TSH all reviewed Ur cx with Kelli PG Care Time/CCT Total # of Minutes Spent Total Time Spent with Patient: Total time spent is greater than 50% in coordination of care (as documented) at patient's floor/unit and/or counseling patient: Coding Level of Care Code 66309 SUB INP/OBS CARE 1/25MIN Diagnoses Hematuria R31.9 Urinary tract infection N39.0 Metabolic encephalopathy G93.41 Anemia D64.9 Urinary retention with incomplete bladder emptying R33.9 HTN (hypertension), benign I10 Dementia F03.90 Depression F32.A Rheumatoid arthritis M06.9
[2022-11-05] MEDS: AMITRIPTYLINE HCL 50 MG TAB PO SCH (21:02)
[2022-11-06] MEDS: CHECK CLONIDINE PATCH PLACEMENT SCH ×2 (00:45→09:41)
[2022-11-06] MEDS: LEVOTHYROXINE SODIUM 100 MCG TABLET PO SCH (06:02)
[2022-11-06] MEDS: ACETAMINOPHEN 325 MG TAB PO PRN (09:33)
[2022-11-06] MEDS: CHOLECALCIFEROL 1,000 UNITS 25 MCG TAB PO SCH (09:42)
[2022-11-06] MEDS: hydrALAZINE TAB 50 MG TAB PO SCH (09:42)
[2022-11-06] MEDS: lisinopril 5 MG TAB PO SCH (09:42)
[2022-11-06] MEDS: HYDROXYCHLOROQUINE SULFATE 200 MG TAB PO SCH (09:42)
[2022-11-06] MEDS: predniSONE 5 MG TAB PO SCH (09:42)
[2022-11-06] MEDS: METOPROLOL SUCC 50MG EXT REL TAB PO SCH (09:42)
[2022-11-06] MEDS: CYANOCOBALAMIN (B-12) 500 MCG TABLET PO SCH (09:43)
[2022-11-06] MEDS: SPIRONOLACTONE 25 MG TAB PO SCH (09:43)
[2022-11-06] MEDS: cefTRIAXone SODIUM 1,000 MG in DEXTROSE 5% 50 ML IV SCH (09:51)
[2022-11-06] MEDS: predniSONE 2.5 MG TAB PO SCH (10:45)
--- NOTE | 2022-11-06 12:41 | Discharge Summary ---
Discharge Summary Date of Service November 06, 2022 Notes For Next Care Provider Medication Changes From Visit Cipro 500mg po bid x 7 days Admission HPI Per Admitting Provider Pt is 87 yo F with PMH arthritis presenting with hematuria. Pt resides in [place] by herself [facility], states her daughter and grandson (whom she refers to as "instigating" this series of events) sought to have her evaluated at [facility] for ongoing urinary issues and arranged to have her brought from [place] to [place] today through the [facility]'s transport. She had previously received care at [facility] but states it has been several years since she has seen a physician. She reports only arthritis as part of her medical history and denies any allergies or home medications. She denies dysuria and frequency, though does state hematuria has improved. She is unsure why she has a Peres catheter placed. Per chart review from ED note and 10/22 [facility] urology report, pt was reportedly at [facility] in [place] twice this week for a UTI. Pt is reportedly taking ciprofloxacin per chart review but she cannot recall being on any antibiotics. I attempted to contact her family members for further clarification but was not able to reach them. Pt seen by urology on 10/22 for urinary incontinence- reportedly was on Myrbetriq + oxybutynin in past to no relief, had PVR with 700 ccs, and Peres placed in office. Plans made for CT urogram and cystoscopy to evaluate urinary retention Pt arrived to ER hemodynamically stable. Initial evaluation significant for WBC 13.6, Hgb 10.1, unremarkable BMP, coagulation studies. UA positive for LE, bacteria, WBCs, RBCs, blood, epithelial cells. ER interventions include ceftriaxone. At present, pt reports no complaints, states hematuria has improved. She is unsure about why she is hospitalized and stated multiple times her grandson "instigated" this hospitalization. Principal Dx & Hospital Course #1 = Principal Diagnosis (1) Hematuria: -Hematuria likely multifactorial- possible UTI in setting of suspected anatomic cause underlying urinary retention -Given dementia, there is possibility she may be pulling at the Peres catheter and causing trauma -Hematuria is now cleared up Hemoglobin dropped to 8.6 from 10.1 but this may be somewhat hemodilutional. Unclear baseline of hemoglobin. Hgb remained stable at 8.9 -Coagulation studies unremarkable -She was on Cipro twice daily given to her by the ER in [place] the day prior to admission -was treated with ceftriaxone;urine culture here with Kelli likely colonization or contamination and does not need treatment. Urine culture obtained from [facility] shows >100k Enterobacter cloacae resistent to Augmentin,cefazolin, cefuroxime,cefoxitin. Enterobacter does have cAmp inducible resistance to 3rd gen cephaloporins as well--> dc to SNF on Cipro 500mg po bid x 7 more days -Urology recommended not changing out Peres due to very difficult placement -follow blood cultures-NGTD -CT abdomen/pelvis without significant findings -Needs outpatient cystoscopy and CT urogram of the kidneys-f/u after abx course completed-likely in 1-2 weeks -Appreciate urology consultation (2) Urinary tract infection: As noted above (3) Metabolic encephalopathy: Metabolic encephalopathy Secondary to UTI and urinary retention with hematuria Improving, now with baseline dementia (4) Anemia: Somewhat chronic most likely but unclear baseline Normocytic, stable at 8.9 Checked iron studies, B12, folate, TSH -all normal Some blood loss anemia from hematuria as well check CBC in 1-2 days at SNF (5) Urinary retention with incomplete bladder emptying: -Normal renal function on admission -Peres catheter in place since urology office 2 weeks ago -Bladder scan PRN -Urology consult as above (6) HTN (hypertension), benign: Blood pressures are stable cont home blood pressure medicines of clonidine patch, hydralazine, lisinopril, spironolactone (7) Dementia: Stable, lives in personal care facility Supportive care Remains convinced that she still lives in [place] after grandson reports she has lived in [facility] [place] since 2020 (8) Depression: cont home amitriptyline (9) Rheumatoid arthritis: With chronic deformities of the hands and feet Cont home hydroxychloroquine but HOLD x 7 days while on Cipro due to QT prolongation potential -continue daily prednisone No stress dose steroids needed Tramadol and Tylenol as needed for pain as a home med Plan DVT prophylaxis-SCDs given hematuria Disposition-medically stable for discharge to SNF Discharge Exam Constitutional WD/WN, vitals as above Respiratory normal respiratory effort, lungs clear to auscultation Cardiovascular RRR, no murmur, no edema Gastrointestinal (Abdomen) normal bowel sounds, soft, nontender, no hepatosplenomegaly Psychiatric Orientation: alert, oriented to person and cooperative; + not oriented to place and + not oriented to time Genitourinary Peres in palce and with clear yellow urine Updated Medication List Medication Instructions Recorded Confirmed Type Head And Shoulders See Rx Instructions .Route .COMPLEX 11/04/22 11/04/22 History acetaminophen 325 mg tablet 650 mg PO Q4H PRN pain or fever 11/04/22 11/04/22 History >100 acetaminophen 500 mg tablet 500 mg PO QID pain 11/04/22 11/04/22 History amitriptyline 50 mg tablet 50 mg PO HS depression 11/04/22 11/04/22 History camphor-menthol 0.2 %-3.5 % See Rx Instructions .Route .COMPLEX 11/04/22 11/04/22 History topical gel cholecalciferol (vitamin D3) 50 50 mcg PO DAILY 11/04/22 11/04/22 History mcg (2,000 unit) tablet (Vitamin D3) clonidine 0.2 mg/24 hr weekly 1 patch transdermal .FRIDAYS HTN 11/04/22 11/04/22 History transdermal patch cyanocobalamin (vitamin B-12) 1,000 mcg PO DAILY 11/04/22 11/04/22 History 1,000 mcg tablet,extended release hydralazine 50 mg tablet 50 mg PO BID HTN 11/04/22 11/04/22 History hydroxychloroquine 200 mg tablet 200 mg PO BID rheumatoid arthritis 11/04/22 11/04/22 History levothyroxine 100 mcg tablet 100 mcg PO QAM 11/04/22 11/04/22 History lisinopril 10 mg tablet 5 mg PO DAILY 11/04/22 11/04/22 History loperamide 2 mg capsule 2 mg PO Q4H PRN Diarrhea 11/04/22 11/04/22 History magnesium hydroxide 400 mg/5 mL 30 ml PO DAILY PRN If no BM x 3 11/04/22 History oral suspension (Milk of Magnesia) days metoprolol succinate 50 mg 50 mg PO QAM HTN 11/04/22 11/04/22 History tablet,extended release 24 hr miconazole nitrate 2 % vaginal See Rx Instructions .Route 11/04/22 11/04/22 History cream (Monistat 7) .COMPLEX YEAST INFECTION peppermint oil 90 mg 180 mg PO TID diarrhea 11/04/22 11/04/22 History capsule,delayed,extended release (IBgard) phenyleph-shark liver 1 applic MA QID PRN Pain 11/04/22 11/04/22 History xvu-pjitwm-cuy rectal cream prednisone 2.5 mg tablet See Rx Instructions .Route 11/04/22 11/04/22 History .COMPLEX RHEUMATOID ARTHRITIS prednisone 5 mg tablet See Rx Instructions .Route 11/04/22 11/04/22 History .COMPLEX RHEUMATOID ARTHRITIS spironolactone 25 mg tablet 25 mg PO DAILY HTN 11/04/22 11/04/22 History tramadol 50 mg tablet 50 mg PO Q6H PRN Pain 11/04/22 11/04/22 History ciprofloxacin HCl 500 mg tablet 500 mg PO Q12H UTI #14 tabs 11/06/22 Rx Hospital Stay Data Consultations 11/03/22 20:42 ED Decision to Admit Stat 11/03/22 22:37 Consult Urology Routine Diagnostic Imagining Performed 11/04/22 07:37 CT abd pelvis wo con Urgent Pending Results Patient Have Any Pending Studies at Discharge: Yes (Final blood cultures-no growth to date) Discharge Instructions Given to Patient (Per Discharging Provider) Please continue taking Cipro x 1 more week for your Enterobacter cloacae UTI. Keep the catheter in until seen by Urology. Please check a CBC and BMP in 2-3 days for the anemia and to check kidney function. Total Time Total Time Spent Total Time Spent (In Minutes): 35 min Coding Level of Care Code 83534 INP/OBS DISCH >30 MIN Diagnoses Hematuria R31.9 Urinary tract infection N39.0 Metabolic encephalopathy G93.41 Anemia D64.9 Urinary retention with incomplete bladder emptying R33.9 HTN (hypertension), benign I10 Dementia F03.90 Depression F32.A Rheumatoid arthritis M06.9
== END 2022-11-06 14:45 | DRG 689 ==
LOC: ED 16:22 → 3W 21:22 → SUATTDRO 21:22 → 3W 22:33

== ENCOUNTER 2023-01-05 15:41 | Inpatient (IN) ==
--- NOTE | 2023-01-05 16:15 | ED Triage Note ---
Date of Service January 05, 2023 History of Present Illness This patient was briefly evaluated while in triage. An abbreviated physical exam was performed. This patient is a 87-year-old Female who presents to the ED for evaluation of blood in her urine. The patient reports that she has a Peres catheter in place for 2 weeks. Quick review of medical record shows that the patient was admitted to our facility in October for hematuria. Patient denies any fever or chills, chest pain, shortness of breath or significant discomfort. Physical Exam CONSTITUTIONAL: Healthy and well nourished. Alert and oriented x3. Patient does not appear in any acute distress. HEENT: No scleral icterus or conjunctival injection/pallor. RESPIRATORY: Clear to auscultation bilaterally with no wheezing, crackles, rhonchi or stridor. CARDIOVASCULAR: Regular rate and rhythm with no murmurs, rubs or gallops. GASTROINTESTINAL: Bowel sounds present in all quadrants. No abdominal tenderness to palpation. INTEGUMENTARY: No rash or other significant dermatologic conditions noted. HEMATOLOGIC: No ecchymosis or petechiae. NEUROLOGIC: No focal neurologic deficits noted. Initial orders for labs and / or imaging were placed and patient was placed in the waiting area until a bed is available. Please see further documentation for the full ED course.
[2023-01-05 17:13] LABS: Hematocrit (blood only) 21.2 % (37.0-47.0); Hemoglobin 6.4 g/dl (12.0-16.0); Mean Corpuscular Hgb Conc 30.2 g/dL (32.0-36.0); Mean Corpuscular Volume 99.5 fL (80.0-100.0); Mean Platelet Volume 9.5 fL (9.4-12.4); Platelet Count 264 K/uL (130-400); RDW Coefficient of Variation 16.9 % (11.5-14.5); RDW Standard Deviation 60.8 fL (36.4-46.3); Red Blood Count 2.13 M/uL (4.20-5.40); White Blood Count 13.11 K/ul (4.8-10.8)
[2023-01-05 17:22] LABS: Appearance Urine Cloudy (Clear); Color Urine Red; Specific Gravity Urine 1.016 (1.000-1.030)
[2023-01-05 17:26] LABS: Anisocytosis Present; Basophils # (auto) 0.04 K/uL (0.00-0.20); Basophils % (auto) 0.3 %; Eosinophils # (auto) 0.08 K/uL (0.00-0.50); Eosinophils % (auto) 0.6 %; Immature Granulocytes # (auto) 0.31 K/uL (0.01-0.20); Immature Granulocytes % (auto) 2.4 %; Lymphocytes # (auto) 0.62 K/uL (1.20-3.40); Lymphocytes % (auto) 4.7 %; Monocytes % (auto) 6.9 %; Neutrophils # (auto) 11.16 K/uL (1.40-6.50); Neutrophils % (auto) 85.1 %
[2023-01-05 17:49] LABS: Alanine Aminotransferase 6 U/L (7-52); Albumin Globulin Ratio 1.3 (0.9-2); Albumin Level 3.9 gm/dl (3.4-5.0); Alkaline Phosphatase 35 U/L (34-104); Anion Gap 9 (3-11); Aspartate Aminotransferase 9 U/L (13-39); BUN Creatinine Ratio 29.5 (10-20); Bilirubin,Total 0.2 mg/dl (0.2-1.0); Blood Urea Nitrogen 49 mg/dl (6-23); Calcium 9.2 mg/dl (8.6-10.3); Carbon Dioxide 19 mmol/L (21-32); Chloride 107 mmol/L (98-107); Est GFR (African American) 31.8 ml/min; Est GFR (Non-African American) 27.4 ml/min; Globulin 3.1 gm/dl (2.5-4.0); Glucose 141 mg/dl (70-99(Fasting)); Lipase 38 U/L (11-82); Potassium 6.2 mmol/L (3.5-5.1); Sodium 135 mmol/L (136-145)
[2023-01-05] MEDS ORDERED: SODIUM CHLORIDE 0.9% 250 ML IV PRN (18:09)
[2023-01-05] MEDS ORDERED: SODIUM CHLORIDE 0.9% 500 ML IV ONE (18:09)
[2023-01-05 18:14] LABS: Partial Thromboplastin Ratio 0.9; Partial Thromboplastin Time 25.2 Seconds (21.0-31.0); Prothrombin Time 10.8 Seconds (9.0-12.0)
--- NOTE | 2023-01-05 18:29 | Emergency Department Note ---
Impression & Plan Acute blood loss anemia, Acute kidney insufficiency, Acute hyperkalemia, Acute dehydration ED Provider Note Name: BURTON FRENCH Age: 87 Sex: Female Arrives Via: Ambulance Informant: Patient ED Provider: Thomas Carroll MD Chief Complaint: Blood in urine Impression: As per impressions above Medical Decision Makin-year-old female with extensive past medical history who apparently lives in [place] and drives to [place] to get her medical care because she likes the hospital. Patient notes that she has had increased blood into her her Peres over the last 2 to 3 weeks. She admits she has not really been eating or drinking anything for the last few weeks as well. States she was feeling ill and thus called her short haul driver who brought her to [place] for evaluation. On examination patient is pale and dehydrated appearing. Her laboratory work-up reveals acute anemia as well as elevated potassium. I suspect anemia secondary to blood loss over the last 2 to 3 weeks. She is not hypotensive or significantly tachycardic. 1 unit PRBC was initially ordered. She was also noted to be hyperkalemic EKG with questionable peaked T waves. She was given 500 mL IV fluid along with some calcium. While further fluid may be beneficial I am a bit concerned about her current anemia issues thus we will hold on further fluid bolus for now. Patient denies any abdominal pain or flank pain. We will hold off on imaging until further evaluation by specialist. Triage/Nursing Notes reviewed by Me I did review external chart of previous hospitalization during which she did have a Peres at that point. Differential:Anemia, bladder ulceration, urinary tumor, renal failure, electrolyte imbalance, infectious etiology, obstructive pathology amongst many other pathologies considered Vital Signs: reviewed and remarkable for no significant abnormalities Interventions: Saline bolus 500 mL IV, calcium 1 g IV, 1 unit PRBC Labs:ED labs Reviewed by me and remarkable for anemia, hyperkalemia, mild CR elevation EKG:As per my interpretation. Indication electrolyte imbalance. Normal sinus rhythm at 63 bpm no ectopy no ischemia. QTc 425. Questionable peaked T waves though not beyond QRS complex. No previous EKG for comparison Cardiac/Tele Monitoring: Cardiac Monitoring: An Order was placed for continuous cardiac monitoring. The monitor shows a rate of 60 with a normal sinus rhythm. Consults:Dr Rachelle CARD Hospitalist Dr Moore Nephro -agreed with approach to hydrate and calcium and then recheck electrolyte panel Plan: Disposition:Hospitalization. Condition: Good History of Present Illness: 87-year-old female arrives for evaluation of blood in urine. Patient states she has had a Peres in place for the last few months due to urinary issues. She states that she had increased bleeding over the last 2 weeks. As bleeding has not stopped she decided to be evaluated. Patient states that she lives in [place] but likes this hospital so she had her short haul driver take her here today. Patient notes she has been feeling increasingly weak and tired. She admits she probably has been eating or drinking as much recently. Denies any fevers, chills, nausea, vomiting, abdominal pain, back pain, flank pain, other bleeding or bruising. Patient is adamant she takes no blood thinners. She does admit she periodically will use ibuprofen or aspirin but does not think she used it recently. Past Medical History:See Below Home Medications:See Below Allergies:Adhesive tape, Remicade Vitals:Blood Pressure: 140/60, Pulse 60, RR 18, T 36.9C, O2 99% on RA Physical Exam: GENERAL: Patient is dehydrated and pale appearing and in mild distress. Bloody urine without clots noted. RESPIRATORY: No dyspnea. Clear to auscultation and equal bilaterally. CARDIOVASCULAR: Regular rate and rhythm.No murmur appreciated. GASTROINTESTINAL: Abdomen soft, non-tender, no peritonitis. EXTREMITIES: Normal motion all extremities, no cyanosis, no edema. NEUROLOGIC: Alert and oriented. No focal neurologic deficits appreciated SKIN: No rash, no jaundice, no diaphoresis. PSYCH: Appropriate GCS: 15 ED Course: Times/Reassessments: Multiple repeat evaluations. Patient in good spirits no complaints and awaiting blood. Thomas Carroll MD Past Med/Surg History Medical History (Updated 01/06/23 @ 17:20 by Alvaro De Anda MD) Acute kidney insufficiency Dementia Depression HTN (hypertension), benign Indwelling Peres catheter present Rheumatoid arthritis Urinary incontinence Urinary retention with incomplete bladder emptying Social History Smoking Status: Former smoker Hx Alcohol Use: No Hx Substance Use: No Preferred Language: Persian Communication Ability: Effective Shopper Insights Manager Required: No Beliefs That Will Affect Care: None Current Living Situation: Alone Current Living Situation Comment: unsure - initially she said she lived w/ her -pt is Feels Safe at Home: Yes Safety Concerns: Feels Safe At This Time Assistive Devices: Walker Assistive Devices Comment: jay Allergies Allergies Allergy/AdvReac Type Severity Reaction Status Date / Time adhesive tape Allergy Unknown ON Verified 01/05/23 18:34 [place] LIST infliximab [From Remicade] Allergy Unknown ON Verified 01/05/23 18:34 [place]uu LIST Home Meds Home Medications Medication Instructions Recorded Confirmed acetaminophen 500 mg tablet 500 mg PO QID pain 11/04/22 01/05/23 amitriptyline 50 mg tablet 50 mg PO HS depression 11/04/22 01/05/23 cholecalciferol (vitamin D3) 50 50 mcg PO QAM 11/04/22 01/05/23 mcg (2,000 unit) tablet (Vitamin D3) cyanocobalamin (vitamin B-12) 1,000 mcg PO QAM 11/04/22 01/05/23 1,000 mcg tablet,extended release hydralazine 50 mg tablet 50 mg PO BID HTN 11/04/22 01/05/23 hydroxychloroquine 200 mg tablet 200 mg PO BID rheumatoid arthritis 11/04/22 01/05/23 levothyroxine 100 mcg tablet 100 mcg PO DAILYBB 11/04/22 01/05/23 loperamide 2 mg capsule 2 mg PO Q4H PRN Diarrhea 11/04/22 01/05/23 magnesium hydroxide 400 mg/5 mL 30 ml PO DAILY PRN If no BM x 3 11/04/22 01/05/23 oral suspension (Milk of Magnesia) days metoprolol succinate 50 mg 50 mg PO QAM HTN 11/04/22 01/05/23 tablet,extended release 24 hr prednisone 2.5 mg tablet 2.5 mg PO QAM RHEUMATOID ARTHRITIS 11/04/22 01/05/23 prednisone 5 mg tablet 5 mg PO QAM RHEUMATOID ARTHRITIS 11/04/22 01/05/23 spironolactone 25 mg tablet 25 mg PO QAM HTN 11/04/22 01/05/23 tramadol 50 mg tablet 50 mg PO Q6H PRN Pain 11/04/22 01/05/23 ascorbic acid (vitamin C) 500 mg 500 mg PO BID 01/05/23 01/05/23 tablet (Vitamin C) clonidine HCl 0.1 mg tablet 0.1 mg PO BID 01/05/23 01/05/23 ferrous sulfate 325 mg (65 mg 325 mg PO BID 01/05/23 01/05/23 iron) tablet lisinopril 5 mg tablet 5 mg PO QAM 01/05/23 01/05/23 Results & Data (ED) Vital Signs Vital Signs - 24 hr 01/05/23 16:13 01/05/23 17:27 01/05/23 17:30 Temperature 36.9 C Temperature Source Temporal Artery Scan Pulse Rate 79 69 Pulse Rate [Apical] 60 Respiratory Rate 18 18 Respiratory Effort / Characteristics Non-Labored Spontaneous Non-Labored Respiratory Depth Normal Normal Respiratory Pattern Regular Blood Pressure 109/56 L Blood Pressure [Right Arm] 140/60 Blood Pressure Mean 73 Blood Pressure Mean [Right Arm] 86 Blood Pressure Position Sitting Pulse Oximetry 98 99 Oxygen Delivery Method Room Air Room Air Sepsis Recent Fever Within 48 Hours No Sepsis New/Unexplained Change in Mental Status N/A Sepsis Action Taken by Nursing No Action Required 01/05/23 18:00 01/05/23 18:01 01/05/23 18:01 Temperature Temperature Source Pulse Rate 62 61 Pulse Rate [Apical] Respiratory Rate 22 18 Respiratory Effort / Characteristics Respiratory Depth Respiratory Pattern Blood Pressure 123/77 Blood Pressure [Right Arm] Blood Pressure Mean 92 Blood Pressure Mean [Right Arm] Blood Pressure Position Pulse Oximetry 99 98 Oxygen Delivery Method Room Air Sepsis Recent Fever Within 48 Hours Sepsis New/Unexplained Change in Mental Status Sepsis Action Taken by Nursing 01/05/23 18:30 01/05/23 19:06 01/05/23 20:18 Temperature Temperature Source Pulse Rate 70 Pulse Rate [Apical] 57 L 59 L Respiratory Rate 23 18 18 Respiratory Effort / Characteristics Non-Labored Non-Labored Respiratory Depth Normal Normal Respiratory Pattern Blood Pressure Blood Pressure [Right Arm] 128/58 L 142/61 H Blood Pressure Mean Blood Pressure Mean [Right Arm] 81 88 Blood Pressure Position Pulse Oximetry 99 99 Oxygen Delivery Method Room Air Room Air Sepsis Recent Fever Within 48 Hours Sepsis New/Unexplained Change in Mental Status Sepsis Action Taken by Nursing Laboratory Data 01/05/23 16:32 01/05/23 16:32 Lab Results 01/05/23 01/05/23 01/05/23 Range/Units 16:32 16:32 16:32 WBC 13.11 H (4.8-10.8) K/ul RBC 2.13 L (4.20-5.40) M/uL Hgb 6.4 L* (12.0-16.0) g/dl POC Hgb (12.0-16.0) g/dl Hct 21.2 L (37.0-47.0) % POC Hct (37-47) % MCV 99.5 (80.0-100.0) fL MCH 30.0 (25.0-34.0) pg MCHC 30.2 L (32.0-36.0) g/dL RDW Std Deviation 60.8 H (36.4-46.3) fL RDW Coeff of Mirna 16.9 H (11.5-14.5) % Plt Count 264 (130-400) K/uL MPV 9.5 (9.4-12.4) fL Immature Gran % (Auto) 2.4 % Neut % (Auto) 85.1 % Lymph % (Auto) 4.7 % Rab[place] % (Auto) 6.9 % Eos % (Auto) 0.6 % Baso % (Auto) 0.3 % Neut # (Auto) 11.16 H (1.40-6.50) K/uL Lymph # (Auto) 0.62 L (1.20-3.40) K/uL [place] # (Auto) 0.90 H (0.11-0.59) K/uL Eos # (Auto) 0.08 (0.00-0.50) K/uL Baso # (Auto) 0.04 (0.00-0.20) K/uL Immature Gran # (Auto) 0.31 H (0.01-0.20) K/uL Anisocytosis Present Peripher Smr Path Cons PT 10.8 (9.0-12.0) Seconds INR 1.0 (0.9-1.1) APTT 25.2 (21.0-31.0) Seconds PTT Ratio 0.9 POC Sodium (135-144) mmol/L Sodium 135 L (136-145) mmol/L POC Potassium (3.3-5.0) mmol/L Potassium 6.2 H* (3.5-5.1) mmol/L POC Chloride (101-112) mmol/L Chloride 107 (98-107) mmol/L Carbon Dioxide 19 L (21-32) mmol/L POC Total CO2 (24-31) mmol/L Anion Gap 9 (3-11) POC Anion Gap (16-25) mmol/L POC BUN (7-18) mg/dl BUN 49 H (6-23) mg/dl Creatinine 1.66 H (0.6-1.2) mg/dl POC Creatinine (0.6-1.3) mg/dl Est Cr Clr Drug Dosing Not Reportable Est GFR ( Amer) 31.8 ml/min Est GFR (Non-Af Amer) 27.4 ml/min BUN/Creatinine Ratio 29.5 H (10-20) Glucose 141 H (70-99(Fasting)) mg/dl POC Glucose (other) (70-99) mg/dl Calcium 9.2 (8.6-10.3) mg/dl POC Ioniz Calcium Maria Teresa (1.12-1.32) mmol/l Total Bilirubin 0.2 (0.2-1.0) mg/dl AST 9 L (13-39) U/L ALT 6 L (7-52) U/L Alkaline Phosphatase 35 (34-104) U/L Total Protein 7.0 (6.0-8.3) gm/dl Albumin 3.9 (3.4-5.0) gm/dl Globulin 3.1 (2.5-4.0) gm/dl Albumin/Globulin Ratio 1.3 (0.9-2) Lipase 38 (11-82) U/L Urine Color Urine Appearance (Clear) Urine pH (4.5-7.5) Ur Specific [place] (1.000-1.030) Urine Protein (Negative) Urine Glucose (UA) (Negative) Urine Ketones (Negative) Urine Blood (Negative) Urine Nitrite (Negative) Urine Bilirubin (Negative) Urine Urobilinogen (Negative) Ur Leukocyte Esterase (Negative) Blood Type Blood Type Recheck Antibody Screen Crossmatch 01/05/23 01/05/23 01/05/23 Range/Units 16:32 16:42 18:28 WBC (4.8-10.8) K/ul RBC (4.20-5.40) M/uL Hgb (12.0-16.0) g/dl POC Hgb (12.0-16.0) g/dl Hct (37.0-47.0) % POC Hct (37-47) % MCV (80.0-100.0) fL MCH (25.0-34.0) pg MCHC (32.0-36.0) g/dL RDW Std Deviation (36.4-46.3) fL RDW Coeff of Mirna (11.5-14.5) % Plt Count (130-400) K/uL MPV (9.4-12.4) fL Immature Gran % (Auto) % Neut % (Auto) % Lymph % (Auto) % [place] % (Auto) % Eos % (Auto) % Baso % (Auto) % Neut # (Auto) (1.40-6.50) K/uL Lymph # (Auto) (1.20-3.40) K/uL [place] # (Auto) (0.11-0.59) K/uL Eos # (Auto) (0.00-0.50) K/uL Baso # (Auto) (0.00-0.20) K/uL Immature Gran # (Auto) (0.01-0.20) K/uL Anisocytosis Peripher Smr Path Cons PT (9.0-12.0) Seconds INR (0.9-1.1) APTT (21.0-31.0) Seconds PTT Ratio POC Sodium (135-144) mmol/L Sodium (136-145) mmol/L POC Potassium (3.3-5.0) mmol/L Potassium (3.5-5.1) mmol/L POC Chloride (101-112) mmol/L Chloride (98-107) mmol/L Carbon Dioxide (21-32) mmol/L POC Total CO2 (24-31) mmol/L Anion Gap (3-11) POC Anion Gap (16-25) mmol/L POC BUN (7-18) mg/dl BUN (6-23) mg/dl Creatinine (0.6-1.2) mg/dl POC Creatinine (0.6-1.3) mg/dl Est Cr Clr Drug Dosing Est GFR ( Amer) ml/min Est GFR (Non-Af Amer) ml/min BUN/Creatinine Ratio (10-20) Glucose (70-99(Fasting)) mg/dl POC Glucose (other) (70-99) mg/dl Calcium (8.6-10.3) mg/dl POC Ioniz Calcium Maria Teresa (1.12-1.32) mmol/l Total Bilirubin (0.2-1.0) mg/dl AST (13-39) U/L ALT (7-52) U/L Alkaline Phosphatase (34-104) U/L Total Protein (6.0-8.3) gm/dl Albumin (3.4-5.0) gm/dl Globulin (2.5-4.0) gm/dl Albumin/Globulin Ratio (0.9-2) Lipase (11-82) U/L Urine Color Red Urine Appearance Cloudy A (Clear) Urine pH (4.5-7.5) Ur Specific [place] 1.016 (1.000-1.030) Urine Protein (Negative) Urine Glucose (UA) (Negative) Urine Ketones (Negative) Urine Blood (Negative) Urine Nitrite (Negative) Urine Bilirubin (Negative) Urine Urobilinogen (Negative) Ur Leukocyte Esterase (Negative) Blood Type A Positive Blood Type Recheck Antibody Screen NEGATIVE Crossmatch See Detail 01/05/23 01/05/23 Range/Units 18:32 19:20 WBC (4.8-10.8) K/ul RBC (4.20-5.40) M/uL Hgb (12.0-16.0) g/dl POC Hgb 6.8 L* (12.0-16.0) g/dl Hct (37.0-47.0) % POC Hct 20 L* (37-47) % MCV (80.0-100.0) fL MCH (25.0-34.0) pg MCHC (32.0-36.0) g/dL RDW Std Deviation (36.4-46.3) fL RDW Coeff of Mirna (11.5-14.5) % Plt Count (130-400) K/uL MPV (9.4-12.4) fL Immature Gran % (Auto) % Neut % (Auto) % Lymph % (Auto) % [place] % (Auto) % Eos % (Auto) % Baso % (Auto) % Neut # (Auto) (1.40-6.50) K/uL Lymph # (Auto) (1.20-3.40) K/uL [place] # (Auto) (0.11-0.59) K/uL Eos # (Auto) (0.00-0.50) K/uL Baso # (Auto) (0.00-0.20) K/uL Immature Gran # (Auto) (0.01-0.20) K/uL Anisocytosis Peripher Smr Path Cons PT (9.0-12.0) Seconds INR (0.9-1.1) APTT (21.0-31.0) Seconds PTT Ratio POC Sodium 136 (135-144) mmol/L Sodium (136-145) mmol/L POC Potassium 6.8 H* (3.3-5.0) mmol/L Potassium (3.5-5.1) mmol/L POC Chloride 111 (101-112) mmol/L Chloride (98-107) mmol/L Carbon Dioxide (21-32) mmol/L POC Total CO2 18 L (24-31) mmol/L Anion Gap (3-11) POC Anion Gap 15.0 L (16-25) mmol/L POC BUN 52 H (7-18) mg/dl BUN (6-23) mg/dl Creatinine (0.6-1.2) mg/dl POC Creatinine 1.7 H (0.6-1.3) mg/dl Est Cr Clr Drug Dosing Est GFR ( Amer) ml/min Est GFR (Non-Af Amer) ml/min BUN/Creatinine Ratio (10-20) Glucose (70-99(Fasting)) mg/dl POC Glucose (other) 122 H (70-99) mg/dl Calcium (8.6-10.3) mg/dl POC Ioniz Calcium [place] 1.22 (1.12-1.32) mmol/l Total Bilirubin (0.2-1.0) mg/dl AST (13-39) U/L ALT (7-52) U/L Alkaline Phosphatase (34-104) U/L Total Protein (6.0-8.3) gm/dl Albumin (3.4-5.0) gm/dl Globulin (2.5-4.0) gm/dl Albumin/Globulin Ratio (0.9-2) Lipase (11-82) U/L Urine Color Urine Appearance (Clear) Urine pH (4.5-7.5) Ur Specific [place] (1.000-1.030) Urine Protein (Negative) Urine Glucose (UA) (Negative) Urine Ketones (Negative) Urine Blood (Negative) Urine Nitrite (Negative) Urine Bilirubin (Negative) Urine Urobilinogen (Negative) Ur Leukocyte Esterase (Negative) Blood Type Blood Type Recheck A Positive Antibody Screen Crossmatch Administered Medications Amitriptyline HCl (Amitriptyline Hcl 50 Mg Tab) 50 mg PO HS JULY Stop: 02/05/23 20:59 Last Admin: 01/06/23 20:17 Dose: 50 mg Documented By: ANITHA Clonidine HCl (Clonidine Hcl 0.1 Mg Tab) 0.1 mg PO BID JULY Stop: 02/05/23 08:59 Last Admin: 01/07/23 08:30 Dose: 0.1 mg Documented By: Admin: 01/06/23 20:16 Dose: 0.1 mg Documented By: Admin: 01/06/23 09:57 Dose: 0.1 mg Documented By: MEHNAZ Hydralazine HCl (Hydralazine Tab 50 Mg Tab) 50 mg PO BID JULY Stop: 02/05/23 08:59 Last Admin: 01/07/23 08:30 Dose: 50 mg Documented By: Admin: 01/06/23 20:16 Dose: 50 mg Documented By: Admin: 01/06/23 09:55 Dose: 50 mg Documented By: MEHNAZ Hydroxychloroquine Sulfate (Hydroxychloroquine Sulfate 200 Mg Tab) 200 mg PO BID JULY Stop: 02/05/23 08:59 Last Admin: 01/07/23 08:31 Dose: 200 mg Documented By: Admin: 01/06/23 20:17 Dose: 200 mg Documented By: Admin: 01/06/23 09:50 Dose: 200 mg Documented By: MEHNAZ Ciprofloxacin (Cipro / D5w) 400 mg in 200 mls @ 100 mls/hr IV Q12H JULY Stop: 01/15/23 21:59 Last Infusion: 01/07/23 13:58 Dose: 0 mls/hr Documented By: Admin: 01/07/23 11:14 Dose: 100 mls/hr Documented By: DREAD Levothyroxine Sodium (Levothyroxine Sodium 100 Mcg Tablet) 100 mcg PO DAILYBB JULY Stop: 02/05/23 06:29 Last Admin: 01/07/23 06:17 Dose: 100 mcg Documented By: Admin: 01/06/23 05:46 Dose: 100 mcg Documented By: [id number] Metoprolol Succinate (Metoprolol Succ 50mg Ext Rel Tab) [facility] [place] Stop: 02/05/23 08:59 Last Admin: 01/07/23 08:31 Dose: 50 mg Documented By: Admin: 01/06/23 09:59 Dose: 50 mg Documented By: MEHNAZ Prednisone (Prednisone 2.5 Mg Tab) [facility] [place] Stop: 02/05/23 08:59 Last Admin: 01/07/23 08:30 Dose: 2.5 mg Documented By: Admin: 01/06/23 09:57 Dose: 2.5 mg Documented By: MEHNAZ Prednisone (Prednisone 5 Mg Tab) [facility] [place] Stop: 02/05/23 08:59 Last Admin: 01/07/23 08:31 Dose: 5 mg Documented By: Admin: 01/06/23 09:58 Dose: 5 mg Documented By: MEHNAZ Discontinued Medications Dextrose (Dextrose 50% 50 Ml Syringe) 50 ml IV NOW ONE Stop: 01/05/23 21:26 Last Admin: 01/05/23 21:49 Dose: 50 ml Documented By: DASHA Sodium Chloride (Nss) 500 mls @ 999 mls/hr IV .Q31M ONE Stop: 01/05/23 18:39 Last Infusion: 01/05/23 19:22 Dose: 0 mls/hr Documented By: Admin: 01/05/23 18:30 Dose: 999 mls/hr Documented By: DASHA Calcium Gluconate () 1,000 mg in 60 mls @ 240 mls/hr IV NOW STA Stop: 01/05/23 19:02 Last Infusion: 01/05/23 19:19 Dose: 0 mls/hr Documented By: Admin: 01/05/23 19:03 Dose: 240 mls/hr Documented By: DASHA Ceftriaxone Sodium 1,000 mg/ (Dextrose) 50 mls @ 100 mls/hr IV Q24H [facility]; Protocol Stop: 01/15/23 21:59 Last Infusion: 01/07/23 00:06 Dose: 0 mls/hr Documented By: Admin: 01/06/23 23:29 Dose: 100 mls/hr Documented By: Infusion: 01/05/23 22:27 Dose: 0 mls/hr Documented By: Admin: 01/05/23 21:57 Dose: 100 mls/hr Documented By: DASHA Sodium Chloride (Nss) 1,000 mls @ 60 mls/hr IV .[id number] JULY Stop: 01/06/23 16:21 Last Infusion: 01/06/23 19:00 Dose: 0 mls/hr Documented By: Admin: 01/06/23 00:24 Dose: 60 mls/hr Documented By: [id number] Insulin Human Regular (Novolin-R Insulin Per Unit Charge) 10 units IV NOW STA Stop: 01/05/23 21:26 Last Admin: 01/05/23 21:49 Dose: 10 units Documented By: DASHA Co-signed By: MARTI Sodium Zirconium Cyclosilicate (Sodium Zirconium Cyclosilicate 10 Gm Packet) 10 gm PO NOW STA Stop: 01/05/23 21:35 Last Admin: 01/06/23 00:53 Dose: 10 gm Documented By: [id number] Discharge Plan Visit Data Chief Complaint: Hematuria Stated Complaint: BLEEDING FROM CATH ED Provider: Thomas Carroll Discharge Problem: Acute blood loss anemia, Acute kidney insufficiency, Acute hyperkalemia, Acute dehydration Patient Disposition: Admitted As Inpatient Discharge Instructions Interventions: ED Discharge Assessment Last Done: 01/05/23 22:41
[2023-01-05 18:44] LABS: iSTAT Creatinine 1.7 mg/dl (0.6-1.3); iSTAT Hemoglobin 6.8 g/dl (12.0-16.0); iSTAT Ionized Calcium 1.22 mmol/l (1.12-1.32); iSTAT Potassium 6.8 mmol/L (3.3-5.0)
[2023-01-05] MEDS ORDERED: CALCIUM GLUCONATE 1,000 MG/60 ML BAG IV STA (18:48)
[2023-01-05] MEDS ORDERED: PATIROMER CALCIUM SORBITEX 8.4 GM PACK PO STA (21:24)
[2023-01-05] MEDS ORDERED: DEXTROSE 50% 50 ML SYRINGE IV ONE (21:25)
[2023-01-05] MEDS ORDERED: NovoLIN-R INSULIN PER UNIT CHARGE IV STA (21:25)
--- NOTE | 2023-01-05 21:26 | History & Physical Report ---
Date of Service January 05, 2023 Assessment & Plan (1) Gross hematuria: (2) Indwelling Thompson catheter present: (3) Acute blood loss anemia: (4) Acute kidney insufficiency: (5) Acute hyperkalemia: (6) Acute dehydration: (7) HTN (hypertension), benign: (8) Urinary tract infection: Plan Acute blood loss anemia- Hemoglobin 6.4 and hematocrit 21.2 He received 1 unit PRBCs from the ED, recheck laboratories in a.m. Most likely source is gross hematuria Gross hematuria/chronic indwelling Thompson catheter/UTI- Hold any antiplatelet agents and anticoagulation Follow urine culture and sensitivity Ceftriaxone 1 g IV daily NSS at 60 mils per hour Urology consulted and saw the patient in the ED Acute renal insufficiency/hyperkalemia/hypertension- Creatinine 1.66, and potassium 6.2 NSS at 60 mils per hour Lokelma 10 mg p.o. x1 now 50 mils of dextrose 50%, followed by 10 units of regular insulin IV, and recheck BMP in 3 hours with potassium improved to 5.3 Hold spironolactone and lisinopril Continue clonidine, hydralazine and metoprolol succinate Rheumatoid arthritis- Continue prednisone, no stress dosing at this time Continue hydroxychloroquine History of Present Illness Chief Complaint: The patient has presented to the emergency department due to concerns regarding gross bleeding in her Thompson catheter Primary Care Provider: Ivy Talley DO The patient is a an 87-year-old female with a past medical history including rheumatoid arthritis, depression, anemia, urinary incontinence, urinary retention with incomplete bladder emptying, chronic indwelling Thompson catheter, dementia, hypertension, urinary tract infection. She lives in [place], and drives to [facility] to get her medical care. She has noticed increased bleeding into her Thompson over the past 2 to 3 weeks. She has has not been eating and drinking as well as usual during the interval of time. 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 Significant laboratories: WBC 13.11, hemoglobin 6.4, hematocrit 21.2, sodium 135, potassium 6.2, bicarb 19, creatinine 1.66, glucose 141, BUN 49 From the ED the patient see the following, calcium gluconate 1 g IV, NSS 500 mils bolus, and 1 unit PRBCs Allergies Allergy/AdvReac Type Severity Reaction Status Date / Time adhesive tape Allergy Unknown ON Verified 01/05/23 18:34 [email or web address] LIST infliximab [From Remicade] Allergy Unknown ON Verified 01/05/23 18:34 [facility] LIST Home Medications Medication Instructions Recorded Confirmed Type acetaminophen 500 mg tablet 500 mg PO QID pain 11/04/22 01/05/23 History amitriptyline 50 mg tablet 50 mg PO HS depression 11/04/22 01/05/23 History cholecalciferol (vitamin D3) 50 50 mcg PO QAM 11/04/22 01/05/23 History mcg (2,000 unit) tablet (Vitamin D3) cyanocobalamin (vitamin B-12) 1,000 mcg PO QAM 11/04/22 01/05/23 History 1,000 mcg tablet,extended release hydralazine 50 mg tablet 50 mg PO BID HTN 11/04/22 01/05/23 History hydroxychloroquine 200 mg tablet 200 mg PO BID rheumatoid arthritis 11/04/22 01/05/23 History levothyroxine 100 mcg tablet 100 mcg PO DAILYBB 11/04/22 01/05/23 History loperamide 2 mg capsule 2 mg PO Q4H PRN Diarrhea 11/04/22 01/05/23 History magnesium hydroxide 400 mg/5 mL 30 ml PO DAILY PRN If no BM x 3 11/04/22 01/05/23 History oral suspension (Milk of Magnesia) days metoprolol succinate 50 mg 50 mg PO QAM HTN 11/04/22 01/05/23 History tablet,extended release 24 hr prednisone 2.5 mg tablet 2.5 mg PO QAM RHEUMATOID ARTHRITIS 11/04/22 01/05/23 History prednisone 5 mg tablet 5 mg PO QAM RHEUMATOID ARTHRITIS 11/04/22 01/05/23 History spironolactone 25 mg tablet 25 mg PO QAM HTN 11/04/22 01/05/23 History tramadol 50 mg tablet 50 mg PO Q6H PRN Pain 11/04/22 01/05/23 History ascorbic acid (vitamin C) 500 mg 500 mg PO BID 01/05/23 01/05/23 History tablet (Vitamin C) clonidine HCl 0.1 mg tablet 0.1 mg PO BID 01/05/23 01/05/23 History ferrous sulfate 325 mg (65 mg 325 mg PO BID 01/05/23 01/05/23 History iron) tablet lisinopril 5 mg tablet 5 mg PO QAM 01/05/23 01/05/23 History Past Med/Surg History Medical History (Updated 01/06/23 @ 03:48 by Horace Bush MD) Dementia Depression HTN (hypertension), benign Indwelling Thompson catheter present Rheumatoid arthritis Urinary incontinence Urinary retention with incomplete bladder emptying Social History Smoking Status: Former smoker Hx Alcohol Use: No Hx Substance Use: No Preferred Language: Serbian Communication Ability: Effective 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 Beliefs That Will Affect Care: None Current Living Situation: Alone Current Living Situation Comment: unsure - initially she said she lived w/ her -pt is Feels Safe at Home: Yes Safety Concerns: Feels Safe At This Time Assistive Devices: Glasses Assistive Devices Comment: thompson Review of Systems Review of Systems: The patient denies chest pain, palpitations, shortness of breath, dyspnea on exertion, cough, lower extremity swelling, sore throat, fevers, chills, sweats, nausea, vomiting, diarrhea , constipation, blood in stool, lightheadedness, dizziness, headache, memory loss, loss of consciousness, rash, imbalance, focal weakness, numbness or tingling in arms or legs, generalized arthralgias or myalgias, back or neck pain, or night sweats. The review of systems is otherwise negative other than for that already noted above, and at least 10 systems have been reviewed. Physical Exam Physical Exam: The patient is awake, alert and oriented 3, well developed and well nourished, normocephalic and atraumatic, lying in bed and in no acute distress. HEENT--PERRL, EOMI, mucous membranes and oropharynx mildly dry. Neck--supple. No JVD. No bruits. Thyroid normal, trachea midline, no adenopathy. Heart--normal S1 and S2. No murmurs, rubs or gallops. Lungs--clear bilaterally, no respiratory distress, no accessory muscle use. Abdomen--normal bowel sounds and soft. Nontender. Nondistended. Extremities--no cyanosis or clubbing. No edema. Dermatologic--normal skin turgor, normal color, no abnormal lymph nodes, no rash. Neurologic--cranial nerves II through XII grossly intact. Rheumatologic--normal range of motion. Psychiatric--normal affect. Results & Data Results & Data Vital Signs (Past 12 Hours) Vital Signs Temp Pulse Pulse Resp BP BP Pulse Ox 01/05/23 21:10 36.9 C 58 L 18 116/62 99 01/05/23 20:55 36.9 C 58 L 18 142/64 H 99 01/05/23 20:40 36.9 C 56 L 18 112/67 98 01/05/23 20:18 59 L 18 142/61 H 99 01/05/23 19:06 57 L 18 128/58 L 99 01/05/23 18:30 70 23 01/05/23 18:01 61 18 98 01/05/23 18:01 123/77 01/05/23 18:00 62 22 99 01/05/23 17:30 60 18 140/60 99 01/05/23 17:27 69 01/05/23 16:13 36.9 C 79 18 109/56 L 98 O2 Del Method 01/05/23 21:10 01/05/23 20:55 01/05/23 20:40 01/05/23 20:18 Room Air 01/05/23 19:06 Room Air 01/05/23 18:30 01/05/23 18:01 Room Air 01/05/23 18:01 01/05/23 18:00 01/05/23 17:30 Room Air 01/05/23 17:27 01/05/23 16:13 Room Air Laboratory Results Laboratory Results WBC 13.11 K/ul (4.8-10.8) H 01/05/23 16:32 RBC 2.13 M/uL (4.20-5.40) L 01/05/23 16:32 Hgb 6.4 g/dl (12.0-16.0) L* 01/05/23 16:32 POC Hgb 6.8 g/dl (12.0-16.0) L* 01/05/23 18:32 Hct 21.2 % (37.0-47.0) L 01/05/23 16:32 POC Hct 20 % (37-47) L* 01/05/23 18:32 MCV 99.5 fL (80.0-100.0) 01/05/23 16: MCH 30.0 pg (25.0-34.0) 01/05/23 16: MCHC 30.2 g/dL (32.0-36.0) L 01/05/23 16:32 RDW Std Deviation 60.8 fL (36.4-46.3) H 01/05/23 16: RDW Coeff of Mirna 16.9 % (11.5-14.5) H 01/05/23 16:32 Plt Count 264 K/uL (130-400) 01/05/23 16: MPV 9.5 fL (9.4-12.4) 01/05/23 16:32 Immature Gran % (Auto) 2.4 % 01/05/23 16:32 Neut % (Auto) 85.1 % 01/05/23 16:32 Lymph % (Auto) 4.7 % 01/05/23 16:32 Benzie % (Auto) 6.9 % 01/05/23 16:32 Eos % (Auto) 0.6 % 01/05/23 16:32 Baso % (Auto) 0.3 % 01/05/23 16:32 Neut # (Auto) 11.16 K/uL (1.40-6.50) H 01/05/23 16:32 Lymph # (Auto) 0.62 K/uL (1.20-3.40) L 01/05/23 16:32 Benzie # (Auto) 0.90 K/uL (0.11-0.59) H 01/05/23 16:32 Eos # (Auto) 0.08 K/uL (0.00-0.50) 01/05/23 16:32 Baso # (Auto) 0.04 K/uL (0.00-0.20) 01/05/23 16:32 Immature Gran # (Auto) 0.31 K/uL (0.01-0.20) H 01/05/23 16:32 Anisocytosis Present 01/05/23 16:32 PT 10.8 Seconds (9.0-12.0) 01/05/23 16:32 INR 1.0 (0.9-1.1) 01/05/23 16:32 APTT 25.2 Seconds (21.0-31.0) 01/05/23 16:32 PTT Ratio 0.9 01/05/23 16:32 POC Sodium 136 mmol/L (135-144) 01/05/23 18:32 Sodium 140 mmol/L (136-145) 01/05/23 23:58 POC Potassium 6.8 mmol/L (3.3-5.0) H* 01/05/23 18:32 Potassium 5.3 mmol/L (3.5-5.1) H 01/05/23 23:58 POC Chloride 111 mmol/L (101-112) 01/05/23 18:32 Chloride 113 mmol/L (98-107) H 01/05/23 23:58 Carbon Dioxide 20 mmol/L (21-32) L 01/05/23 23:58 POC Total CO2 18 mmol/L (24-31) L 01/05/23 18:32 Anion Gap 7 (3-11) 01/05/23 23:58 POC Anion Gap 15.0 mmol/L (16-25) L 01/05/23 18:32 POC BUN 52 mg/dl (7-18) H 01/05/23 18:32 BUN 46 mg/dl (6-23) H 01/05/23 23:58 Creatinine 1.48 mg/dl (0.6-1.2) H 01/05/23 23:58 POC Creatinine 1.7 mg/dl (0.6-1.3) H 01/05/23 18:32 Est Cr Clr Drug Dosing 22.7 ml/min 01/05/23 23:58 Est GFR ( Amer) 36.5 ml/min 01/05/23 23:58 Est GFR (Non-Af Amer) 31.5 ml/min 01/05/23 23:58 BUN/Creatinine Ratio 31.1 (10-20) H 01/05/23 23:58 Glucose 71 mg/dl (70-99(Fasting)) 01/05/23 23:58 POC Glucose 213 mg/dl (70-99) H 01/05/23 22:52 POC Glucose (other) 122 mg/dl (70-99) H 01/05/23 18:32 Calcium 9.2 mg/dl (8.6-10.3) 01/05/23 23:58 POC Ioniz Calcium Maria Teresa 1.22 mmol/l (1.12-1.32) 01/05/23 18:32 Total Bilirubin 0.2 mg/dl (0.2-1.0) 01/05/23 16:32 AST 9 U/L (13-39) L 01/05/23 16:32 ALT 6 U/L (7-52) L 01/05/23 16:32 Alkaline Phosphatase 35 U/L (34-104) 01/05/23 16:32 Total Protein 7.0 gm/dl (6.0-8.3) 01/05/23 16:32 Albumin 3.9 gm/dl (3.4-5.0) 01/05/23 16:32 Globulin 3.1 gm/dl (2.5-4.0) 01/05/23 16:32 Albumin/Globulin Ratio 1.3 (0.9-2) 01/05/23 16:32 Lipase 38 U/L (11-82) 01/05/23 16:32 Urine Color Red 01/05/23 16:42 Urine Appearance Cloudy (Clear) A 01/05/23 16:42 Urine pH (4.5-7.5) 01/05/23 16:42 Ur Specific [place] 1.016 (1.000-1.030) 01/05/23 16:42 Urine Protein (Negative) 01/05/23 16:42 Urine Glucose (UA) (Negative) 01/05/23 16:42 Urine Ketones (Negative) 01/05/23 16:42 Urine Blood (Negative) 01/05/23 16:42 Urine Nitrite (Negative) 01/05/23 16:42 Urine Bilirubin (Negative) 01/05/23 16:42 Urine Urobilinogen (Negative) 01/05/23 16:42 Ur Leukocyte Esterase (Negative) 01/05/23 16:42 Blood Type A Positive 01/05/23 18:28 Blood Type Recheck A Positive 01/05/23 19:20 Antibody Screen NEGATIVE 01/05/23 18:28 Crossmatch See Detail 01/05/23 18:28 Code Status & VTE Plan Code Status Full code VTE Prophylaxis Plan VTE Prophylaxis will be ordered: Yes PG Care Time/CCT Total # of Minutes Spent Total Time Spent with Patient: Total time spent is greater than 50% in coordination of care (as documented) at patient's floor/unit and/or counseling patient: Coding Level of Care Code 75585 INT INP/OBS CARE 375MIN Diagnoses Gross hematuria R31.0 Indwelling Thompson catheter present Z97.8 Acute blood loss anemia D62 Acute kidney insufficiency N28.9 Acute hyperkalemia E87.5 Acute dehydration E86.0 HTN (hypertension), benign I10 Urinary tract infection N39.0
[2023-01-05] MEDS ORDERED: SODIUM ZIRCONIUM CYCLOSILICATE 10 GM PACKET PO STA (21:34)
--- NOTE | 2023-01-05 21:34 | Urology Consultation ---
Date of Consultation January 05, 2023 Assessment & Plan (1) Hematuria: I discussed with the treating emergency room physician and the patient is being admitted on the hospitalist service. We recommend proceeding as follows from a urologic perspective: Maintain Peres catheter to gravity drainage. If the Peres catheter becomes clogged manual irrigation attempts can be employed to resolve any obstruction Follow serial hemoglobin and hematocrits and transfuse if needed. The patient is already receiving 1 unit of packed red blood cells due to her noted anemia Avoid any antiplatelets and anticoagulants. Would also recommend not using chemical means for DVT prophylaxis due to the no hematuria As noted the patient has not yet completed evaluation for cystoscopy. We therefore recommend making the patient n.p.o. after midnight tonight. She will be reevaluated by our dayshift urology team to determine if inpatient cystoscopy is warranted. Additional recommendations be forthcoming based on her clinical course as it unfolds History of Present Illness Reason for Consultation: Gross hematuria History of Present Illness This is an 87-year-old female who presented to [facility] secondary to gross hematuria. It is nowhere the mention that the patient was seen at [facility] for similar problem from 11/04/2022 through 11/06/2022. During this visit the patient did have a CT scan of her abdomen pelvis that showed no evidence of urothelial lesions or kidney stones or other explanation for patient's hematuria. During this visit the patient was seen by urology and her hematuria did clear with conservative measures. It was recommended that patient undergo an outpatient evaluation to ascertain the cause of her hematuria. She notes that she does not take any anticoagulants. The patient notes that she does reside in [place] but as she has received prior care [facility] she felt it was in her best interest to come to [facility] for further evaluation. The patient notes that since this visit she has not undergone any further evaluation of her hematuria but of note the patient did have a CT scan of the abdomen pelvis on 11/26/2022 which did not show any evidence of hydronephrosis or cause of patient's hematuria. The patient notes that she decided to come to [facility] emergency department today secondary to ongoing hematuria. Patient notes that she has had a Peres catheter for quite some time but could not ascertain when if the Peres catheter was placed but she does note that she has had bleeding from her Peres catheter and she is unsure when this began. She specifically denies any pain specifically stating she has not had any back, flank, or abdominal pain. She has not had any fevers, shakes, or chills. Since arrival to the hospital the patient has had and imaging which independent reviewed. CBC reveals white blood cell count was elevated at 13.1. Patient's hemoglobin and hematocrit were 6.4 and 21.2 respectively. Platelet count was noted to be normal. Chemistry profile showed sodium was 135 with a potassium of 6.2. BUN and creatinine were 49 and 1.6. There is no elevation of patient's LFTs or lipase. Urinalysis was uninterpretable as the specimen is almost entirely blood. Coagulation studies were noted to be within the normal range. At the time my interview the patient was resting comfortably in bed and she was in no distress. Allergies Allergy/AdvReac Type Severity Reaction Status Date / Time adhesive tape Allergy Unknown ON Verified 01/05/23 18:34 [employer] LIST infliximab [From Remicade] Allergy Unknown ON Verified 01/05/23 18:34 [employer] LIST Home Medications Medication Instructions Recorded Confirmed Type acetaminophen 500 mg tablet 500 mg PO QID pain 11/04/22 01/05/23 History amitriptyline 50 mg tablet 50 mg PO HS depression 11/04/22 01/05/23 History cholecalciferol (vitamin D3) 50 50 mcg PO QAM 11/04/22 01/05/23 History mcg (2,000 unit) tablet (Vitamin D3) cyanocobalamin (vitamin B-12) 1,000 mcg PO QAM 11/04/22 01/05/23 History 1,000 mcg tablet,extended release hydralazine 50 mg tablet 50 mg PO BID HTN 11/04/22 01/05/23 History hydroxychloroquine 200 mg tablet 200 mg PO BID rheumatoid arthritis 11/04/22 01/05/23 History levothyroxine 100 mcg tablet 100 mcg PO DAILYBB 11/04/22 01/05/23 History loperamide 2 mg capsule 2 mg PO Q4H PRN Diarrhea 11/04/22 01/05/23 History magnesium hydroxide 400 mg/5 mL 30 ml PO DAILY PRN If no BM x 3 11/04/22 01/05/23 History oral suspension (Milk of Magnesia) days metoprolol succinate 50 mg 50 mg PO QAM HTN 11/04/22 01/05/23 History tablet,extended release 24 hr prednisone 2.5 mg tablet 2.5 mg PO QAM RHEUMATOID ARTHRITIS 11/04/22 01/05/23 History prednisone 5 mg tablet 5 mg PO QAM RHEUMATOID ARTHRITIS 11/04/22 01/05/23 History spironolactone 25 mg tablet 25 mg PO QAM HTN 11/04/22 01/05/23 History tramadol 50 mg tablet 50 mg PO Q6H PRN Pain 11/04/22 01/05/23 History ascorbic acid (vitamin C) 500 mg 500 mg PO BID 01/05/23 01/05/23 History tablet (Vitamin C) clonidine HCl 0.1 mg tablet 0.1 mg PO BID 01/05/23 01/05/23 History ferrous sulfate 325 mg (65 mg 325 mg PO BID 01/05/23 01/05/23 History iron) tablet lisinopril 5 mg tablet 5 mg PO QAM 01/05/23 01/05/23 History Patient History Medical History Dementia Depression HTN (hypertension), benign Rheumatoid arthritis Urinary incontinence Urinary retention with incomplete bladder emptying Social History Smoking Status: Never smoker Hx Alcohol Use: No Hx Substance Use: No Communication Ability: Impaired Natural Resources Specialist Required: No Beliefs That Will Affect Care: Worship Current Living Situation Comment: unsure Feels Safe at Home: Yes Assistive Devices: Cane and Walker Review of Systems Constitutional: no fever and no chills Ear, Nose, Mouth, Throat: no hearing loss Respiratory: no cough and no dyspnea Cardiovascular: no chest pain Gastrointestinal: no abdominal pain, no nausea and no vomiting Genitourinary: no dysuria Musculoskeletal: no back pain Integumentary: no rash Neurologic: no localized weakness Physical Exam Constitutional: WD/WN, vitals as above Eyes: no conjunctival abnormality ENMT: Ears: no hearing impairment and no external ear abnormality Mouth: no oropharynx abnormality Neck: trachea midline Respiratory: normal respiratory effort; no respiratory distress and no labored breathing Cardiovascular: Rate/Rhythm: regular rate and regular rhythm Gastrointestinal (Abdomen): Abdomen is soft and nonrigid. It is nondistended. There is no pain with palpation Musculoskeletal: No calf tenderness Skin: no rashes Neurologic: moves all extremities Psychiatric: A+Ox3, euthymic affect Genitourinary: No CVA tenderness with percussion bilaterally. The patient had a Peres catheter in place that appeared patent. It was draining [place] colored urine without any visible blood clots Results & Data Vital Signs (Past 12 Hours) Vital Signs Temp Pulse Pulse Resp BP BP Pulse Ox 01/05/23 21:10 36.9 C 58 L 18 116/62 99 01/05/23 20:55 36.9 C 58 L 18 142/64 H 99 01/05/23 20:40 36.9 C 56 L 18 112/67 98 01/05/23 20:18 59 L 18 142/61 H 99 01/05/23 19:06 57 L 18 128/58 L 99 01/05/23 18:30 70 23 01/05/23 18:01 61 18 98 01/05/23 18:01 123/77 01/05/23 18:00 62 22 99 01/05/23 17:30 60 18 140/60 99 01/05/23 17:27 69 01/05/23 16:13 36.9 C 79 18 109/56 L 98 O2 Del Method 01/05/23 21:10 01/05/23 20:55 01/05/23 20:40 01/05/23 20:18 Room Air 01/05/23 19:06 Room Air 01/05/23 18:30 01/05/23 18:01 Room Air 01/05/23 18:01 01/05/23 18:00 01/05/23 17:30 Room Air 01/05/23 17:27 01/05/23 16:13 Room Air PG Care Time/CCT Total # of Minutes Spent Total Time Spent with Patient: Total time spent is greater than 50% in coordination of care (as documented) at patient's floor/unit and/or counseling patient: Coding Level of Care Code 55415 INT INP/OBS CARE 3/75MIN Diagnoses Hematuria R31.9
[2023-01-05] MEDS: cefTRIAXone SODIUM 1,000 MG in DEXTROSE 5 % MINI-B 50 ML IV SCH (21:57)
[2023-01-05] MEDS ORDERED: SODIUM CHLORIDE 0.9% 1,000 ML IV SCH (23:42)
[2023-01-05] MEDS ORDERED: traMADol HCL 50 MG TABLET PO PRN (23:42)
[2023-01-05] MEDS ORDERED: MAGNESIUM HYDROXIDE SUSP 30 ML UDC PO PRN (23:42)
[2023-01-05] MEDS ORDERED: ONDANSETRON INJ 2 MG/ML 2 ML VIAL IV PRN (23:42)
[2023-01-06 00:34] LABS: BUN Creatinine Ratio 31.1 (10-20); Calcium 9.2 mg/dl (8.6-10.3); Creatinine Clr Calc Pharmacy 22.7 ml/min; Est GFR (African American) 36.5 ml/min; Est GFR (Non-African American) 31.5 ml/min; Potassium 5.3 mmol/L (3.5-5.1)
[2023-01-06] MEDS: LEVOTHYROXINE SODIUM 100 MCG TABLET PO SCH (05:46)
[2023-01-06 07:01] LABS: Basophils # (auto) 0.02 K/uL (0.00-0.20); Basophils % (auto) 0.3 %; Eosinophils # (auto) 0.23 K/uL (0.00-0.50); Hematocrit (blood only) 22.4 % (37.0-47.0); Hemoglobin 7.1 g/dl (12.0-16.0); Immature Granulocytes # (auto) 0.26 K/uL (0.01-0.20); Immature Granulocytes % (auto) 3.4 %; Lymphocytes # (auto) 1.11 K/uL (1.20-3.40); Lymphocytes % (auto) 14.3 %; Mean Corpuscular Hemoglobin 30.1 pg (25.0-34.0); Mean Corpuscular Hgb Conc 31.7 g/dL (32.0-36.0); Mean Corpuscular Volume 94.9 fL (80.0-100.0); Mean Platelet Volume 9.3 fL (9.4-12.4); Monocytes # (auto) 0.79 K/uL (0.11-0.59); Monocytes % (auto) 10.2 %; Neutrophils # (auto) 5.33 K/uL (1.40-6.50); Neutrophils % (auto) 68.8 %; Platelet Count 194 K/uL (130-400); RDW Coefficient of Variation 17.1 % (11.5-14.5); RDW Standard Deviation 58.2 fL (36.4-46.3); Red Blood Count 2.36 M/uL (4.20-5.40); White Blood Count 7.74 K/ul (4.8-10.8)
[2023-01-06 07:30] LABS: Polychromasia 1+
--- NOTE | 2023-01-06 07:36 | Hospitalist Progress Note ---
Date of Service January 06, 2023 Assessment & Plan (1) Gross hematuria: Plan: associated Acute Blood loss anemia, s/p transfusion 1 u prbc iron and B 12 checked recently and replete urology eval for cystoscopy, not planned at the moment CT abd/pelvis in nov without significant issues culture pending on Ceftiraxone for UTI poa (2) HTN (hypertension), benign: Plan: chronic stable Continue clonidine, hydralazine and metoprolol succinate (3) Acute kidney injury: Plan: NICOLASA, be sure thompson is not occluded for cause, mary irriagaiton methods, avoid nephrotoxins suspect some dehydration also factor acute hyperkalemia Lokelma 10 mg p.o. x1 50 mils of dextrose 50%, followed by 10 units of regular insulin IV, and recheck potassium improved to 5.3 Hold spironolactone and lisinopril Plan Rheumatoid arthritis- Continue prednisone, no stress dosing at this time Continue hydroxychloroquine Admission and Anticipated Discharge Date Admission Date: January 05, 2023 Subjective pt is pleasantly confused, has no focal complaints , has rust colored urine in thompson during my visit Physical Exam Physical Exam: pleasant and conversational but not oriented cardiac is regular, lungs are clear Results & Data Results & Data Vital Signs (Past 12 Hours) Vital Signs Temp Pulse Pulse Resp BP BP Pulse Ox 01/06/23 07:29 97.9 F 93 H 18 139/81 97 01/06/23 02:54 98.2 F 70 19 145/85 H 98 01/05/23 23:35 68 01/06/23 00:35 62 151/53 H 01/05/23 23:44 97.9 F 66 16 164/69 H 100 01/05/23 22:40 97.7 F 67 20 164/70 H 99 01/05/23 22:41 01/05/23 22:30 98.6 F 69 16 123/73 97 01/05/23 22:00 98.6 F 72 18 149/75 H 99 01/05/23 21:30 98.4 F 67 18 169/61 H 98 01/05/23 21:29 64 01/05/23 21:10 98.4 F 58 L 18 116/62 99 01/05/23 20:55 98.4 F 58 L 18 142/64 H 99 01/05/23 20:40 98.4 F 56 L 18 112/67 98 01/05/23 20:18 59 L 18 142/61 H 99 O2 Del Method 01/06/23 07:29 Room Air 01/06/23 02:54 Room Air 01/05/23 23:35 01/06/23 00:35 01/05/23 23:44 Room Air 01/05/23 22:40 01/05/23 22:41 Room Air 01/05/23 22:30 01/05/23 22:00 01/05/23 21:30 01/05/23 21:29 01/05/23 21:10 01/05/23 20:55 01/05/23 20:40 01/05/23 20:18 Room Air Laboratory Results ua with > 100,000 Gr neg Reviewed CBC reviewed chemistry PG Care Time/CCT Total # of Minutes Spent Total Time Spent with Patient: Total time spent is greater than 50% in coordination of care (as documented) at patient's floor/unit and/or counseling patient: Coding Level of Care Code 45606 SUB INP/OBS CARE 3/50MIN Diagnoses Gross hematuria R31.0 HTN (hypertension), benign I10 Acute kidney injury N17.9
[2023-01-06 07:42] LABS: Albumin Level 3.4 gm/dl (3.4-5.0); Calcium 8.5 mg/dl (8.6-10.3); Creatinine Clr Calc Pharmacy 26.8 ml/min; Est GFR (African American) 43.5 ml/min; Est GFR (Non-African American) 37.6 ml/min; Phosphorus 4.9 mg/dl (2.5-4.9); Potassium 4.9 mmol/L (3.5-5.1)
--- NOTE | 2023-01-06 07:59 | Electrocardiogram Report ---
Test Reason : Blood Pressure : / mmHG Vent. Rate : 063 BPM Atrial Rate : 063 BPM P-R Int : 144 ms QRS Dur : 092 ms QT Int : 416 ms P-R-T Axes : 062 018 050 degrees QTc Int : 425 ms Normal sinus rhythm Normal ECG No previous ECGs available Confirmed by Demarcus Zamora ([id number]) on 01/06/2023 7:59:47 AM Referred By: REFERRED SELF Confirmed By:Henrik Zamora
[2023-01-06] MEDS ORDERED: SPIRONOLACTONE 25 MG TAB PO SCH (09:00)
[2023-01-06] MEDS ORDERED: lisinopril 5 MG TAB PO SCH (09:00)
[2023-01-06] MEDS ORDERED: ACETAMINOPHEN 500 MG TAB PO SCH (09:00)
[2023-01-06] MEDS ORDERED: CHOLECALCIFEROL 1,000 UNITS 25 MCG TAB PO SCH (09:00)
[2023-01-06] MEDS ORDERED: ASCORBIC ACID 500 MG TAB PO SCH (09:00)
[2023-01-06] MEDS ORDERED: FERROUS SULFATE 325 MG TAB PO SCH (09:00)
[2023-01-06] MEDS ORDERED: CYANOCOBALAMIN (B-12) 500 MCG TABLET PO SCH (09:00)
[2023-01-06] MEDS: HYDROXYCHLOROQUINE SULFATE 200 MG TAB PO SCH ×2 (09:50→20:17)
[2023-01-06] MEDS: hydrALAZINE TAB 50 MG TAB PO SCH ×2 (09:55→20:16)
[2023-01-06] MEDS: cloNIDine HCL 0.1 MG TAB PO SCH ×2 (09:57→20:16)
[2023-01-06] MEDS: predniSONE 2.5 MG TAB PO SCH (09:57)
[2023-01-06] MEDS: predniSONE 5 MG TAB PO SCH (09:58)
[2023-01-06] MEDS: METOPROLOL SUCC 50MG EXT REL TAB PO SCH (09:59)
--- NOTE | 2023-01-06 10:18 | Urology Progress Note ---
Date of Service January 06, 2023 Assessment & Plan (1) Indwelling Peres catheter present: (2) Gross hematuria: Plan Afebrile, hemodynamically stable. Labs reviewedWBC 7.74, hemoglobin 7.1 (received PRBC transfusion yesterday), creatinine 1.28. Urine culture preliminary gram-negative bacilli, on ceftriaxone. Peres catheter irrigated at bedside this morning with evacuation of some clot. Pt tolerated well. Catheter currently draining light red urine. No plan for intervention at this time. Continue supportive care and antibiotic therapy. Maintain Peres catheter. Okay to hand irrigate as needed for clots, retention, suprapubic pain. Continue to trend labs. Transfuse as felt necessary per primary team. Urology will follow Admission and Anticipated Discharge Date Admission Date: January 05, 2023 Subjective Patient examined at bedside this AM. Awake, resting in bed on arrival. No acute distress. Peres with minimal dark red urine draining. Denies any pain or discomfort at present. Denies fevers, chills, nausea, vomiting. Nursing at bedside and bladder scanned for 313ml. Pt was seen by Dr. Underwood on 12/05/22 for cystoscopy and review of CT imaging. CT scan was nonconcerning outside of the bladder wall thickening. Cystoscopy revealed significant erythema at the bladder floor from the catheter but no obvious masses. The remainder of the bladder was normal. Review of Systems Constitutional: as per Subjective / HPI Gastrointestinal: as per Subjective / HPI Genitourinary: as per Subjective / HPI Physical Exam Constitutional: no acute distress Respiratory: no respiratory distress and no labored breathing Gastrointestinal (Abdomen): Percussion/Palpation: abdomen soft; abdomen nontender Musculoskeletal: Head/Neck/Chest: normocephalic Skin: No visible rashes or lesions to exposed skin areas Neurologic: awake Psychiatric: Orientation: alert, oriented to person and cooperative Genitourinary: Peres catheter intact, draining minimal dark red urine Results & Data Vital Signs (Past 12 Hours) Vital Signs Temp Pulse Pulse Resp BP BP Pulse Ox 01/06/23 07:29 36.6 C 93 H 18 139/81 97 01/06/23 02:54 36.8 C 70 19 145/85 H 98 01/05/23 23:35 68 01/06/23 00:35 62 151/53 H 01/05/23 23:44 36.6 C 66 16 164/69 H 100 01/05/23 22:40 36.5 C 67 20 164/70 H 99 01/05/23 22:41 01/05/23 22:30 37 C 69 16 123/73 97 O2 Del Method 01/06/23 07:29 Room Air 01/06/23 02:54 Room Air 01/05/23 23:35 01/06/23 00:35 01/05/23 23:44 Room Air 01/05/23 22:40 01/05/23 22:41 Room Air 01/05/23 22:30 PG Care Time/CCT Total # of Minutes Spent Total Time Spent with Patient: Total time spent is greater than 50% in coordination of care (as documented) at patient's floor/unit and/or counseling patient: Coding Level of Care Code 20449 SUB INP/OBS CARE 235MIN Diagnoses Indwelling Peres catheter present Z97.8 Gross hematuria R31.0
[2023-01-06] MEDS: AMITRIPTYLINE HCL 50 MG TAB PO SCH (20:17)
[2023-01-06] MEDS: cefTRIAXone SODIUM 1,000 MG in DEXTROSE 5 % MINI-B 50 ML IV SCH (23:29)
[2023-01-07] MEDS: LEVOTHYROXINE SODIUM 100 MCG TABLET PO SCH (06:17)
[2023-01-07 06:21] LABS: Hemoglobin 6.8 g/dl (12.0-16.0); Mean Corpuscular Hemoglobin 29.7 pg (25.0-34.0); Mean Corpuscular Hgb Conc 30.9 g/dL (32.0-36.0); Mean Corpuscular Volume 96.1 fL (80.0-100.0); Mean Platelet Volume 9.9 fL (9.4-12.4); Platelet Count 155 K/uL (130-400); RDW Standard Deviation 59.4 fL (36.4-46.3); Red Blood Count 2.29 M/uL (4.20-5.40); White Blood Count 6.71 K/ul (4.8-10.8)
[2023-01-07 06:25] LABS: BUN Creatinine Ratio 28.8 (10-20); Calcium 8.1 mg/dl (8.6-10.3); Creatinine Clr Calc Pharmacy 30.9 ml/min; Est GFR (African American) 51.7 ml/min; Est GFR (Non-African American) 44.6 ml/min; Magnesium 1.9 mg/dl (1.7-2.4); Phosphorus 3.5 mg/dl (2.5-4.9); Potassium 4.9 mmol/L (3.5-5.1)
[2023-01-07 06:30] LABS: Basophils # (auto) 0.03 K/uL (0.00-0.20); Basophils % (auto) 0.4 %; Eosinophils # (auto) 0.19 K/uL (0.00-0.50); Eosinophils % (auto) 2.8 %; Immature Granulocytes # (auto) 0.18 K/uL (0.01-0.20); Immature Granulocytes % (auto) 2.7 %; Lymphocytes # (auto) 1.18 K/uL (1.20-3.40); Lymphocytes % (auto) 17.6 %; Monocytes % (auto) 8.9 %; Neutrophils # (auto) 4.53 K/uL (1.40-6.50); Neutrophils % (auto) 67.6 %; Polychromasia 1+
[2023-01-07] MEDS ORDERED: SODIUM CHLORIDE 0.9% 250 ML IV PRN ×2 (06:32→07:57)
--- NOTE | 2023-01-07 08:00 | Hospitalist Progress Note ---
Date of Service January 07, 2023 Assessment & Plan (1) Gross hematuria: Plan: associated Acute Blood loss anemia, s/p transfusion will give additional unit 01/07/23, for 2 u total iron and B 12 checked recently and replete urology eval for cystoscopy, npo now that hgb dropped again CT abd/pelvis in nov without significant issues culture pending on Ceftriaxone for UTI poa, anna sensitive Enterobacter but with resistance patterns antimicrobial pharmacist suggests cipro (2) HTN (hypertension), benign: Plan: chronic stable Continue clonidine, hydralazine and metoprolol succinate (3) Acute kidney injury: Plan: NICOLASA, be sure thompson is not occluded for cause, mary irriagaiton methods, avoid nephrotoxins suspect some dehydration also factor acute hyperkalemia Lokelma 10 mg p.o. x1 50 mils of dextrose 50%, followed by 10 units of regular insulin IV, and recheck potassium improved to 5.3 Hold spironolactone and lisinopril Plan Rheumatoid arthritis- Continue prednisone, no stress dosing at this time Continue hydroxychloroquine family LISA Rae feels that we are nearing a palliative state given her severe dementia, is willing to speak to palliative care about goals of care and possible POLST Admission and Anticipated Discharge Date Admission Date: January 05, 2023 Subjective pt is pleasantly confused, still ice tea colored urine no real pain Physical Exam Physical Exam: pleasant and conversational but not oriented cardiac is regular, lungs are clear Results & Data Results & Data Vital Signs (Past 12 Hours) Vital Signs Temp Pulse Pulse Resp BP Pulse Ox O2 Del Method 01/07/23 07:44 97.9 F 63 20 121/71 96 Room Air 01/07/23 03:16 98.3 F 58 L 18 128/60 97 Room Air 01/06/23 23:00 63 01/06/23 23:00 97.7 F 69 16 118/74 96 Room Air 01/06/23 20:00 Room Air PG Care Time/CCT Total # of Minutes Spent Total Time Spent with Patient: Total time spent is greater than 50% in coordination of care (as documented) at patient's floor/unit and/or counseling patient: Coding Level of Care Code 08396 SUB INP/OBS CARE 2/35MIN Diagnoses Gross hematuria R31.0 HTN (hypertension), benign I10 Acute kidney injury N17.9
--- NOTE | 2023-01-07 08:03 | Urology Progress Note ---
Date of Service January 07, 2023 Assessment & Plan (1) Gross hematuria: (2) Urinary tract infection: (3) Indwelling Peres catheter present: Plan Afebrile, vitals stable. Labs reviewedWBC 6.71, creatinine 1.11, hemoglobin 6.4 -7.1 -6.8 today (PRBC transfusion 01/05 and to receive again today 01/07). Urine culture preliminary with Enterobacter, on Ceftriaxone. Peres catheter draining light pink urine. Catheter irrigated overnight by nursing with multiple small clots removed. Maintain Peres catheter. OK to manually irrigate as needed for clots, retention, suprapubic pain. Prior CT urogram from Nov was nonconcerning outside of the bladder wall thickening. Office cystoscopy 12/05/22 revealed significant erythema at the bladder floor from the catheter but no obvious masses. Hematuria possibly due to UTI and catheter irritation, however will get updated CT urogram this morning given persistent hematuria and anemia. Keep NPO for now pending imaging results. Continue to trend labs. Transfuse as felt necessary per primary team. Urology will follow. Update - Patient reassessed this afternoon. Received 1 unit PRBC this morning. Peres patent and draining clear yellow urine at this time. No plan for intervention. CT cancelled. Okay for diet from our standpoint. Maintain Peres catheter. Okay to hand irrigate as needed for clots, retention, suprapubic pain. Urology will follow. Admission and Anticipated Discharge Date Admission Date: January 05, 2023 Subjective Pt examined at bedside this AM. Awake, resting in bed on arrival. No acute distress. Denies any pain or discomfort at present. Peres draining light pink urine. Nursing manually irrigated catheter overnight with removal of several small clots per note. Denies fevers, chills, nausea, vomiting. Has been NPO. Pt was seen by Dr. Underwood on 12/05/22 for cystoscopy and review of CT imaging. CT scan was nonconcerning outside of the bladder wall thickening. Cystoscopy revealed significant erythema at the bladder floor from the catheter but no obvious masses. The remainder of the bladder was normal. Review of Systems Constitutional: as per Subjective / HPI Gastrointestinal: as per Subjective / HPI Genitourinary: as per Subjective / HPI Physical Exam Constitutional: no acute distress Respiratory: no respiratory distress and no labored breathing Gastrointestinal (Abdomen): Percussion/Palpation: abdomen soft; abdomen nontender Skin: No visible rashes or lesions to exposed skin areas Neurologic: awake Psychiatric: Orientation: alert, oriented to person and cooperative Genitourinary: Peres catheter intact, draining light pink urine Results & Data Vital Signs (Past 12 Hours) Vital Signs Temp Pulse Pulse Resp BP Pulse Ox O2 Del Method 01/07/23 07:44 36.6 C 63 20 121/71 96 Room Air 01/07/23 03:16 36.8 C 58 L 18 128/60 97 Room Air 01/06/23 23:00 63 01/06/23 23:00 36.5 C 69 16 118/74 96 Room Air 01/06/23 20:00 Room Air PG Care Time/CCT Total # of Minutes Spent Total Time Spent with Patient: Total time spent is greater than 50% in coordination of care (as documented) at patient's floor/unit and/or counseling patient: Coding Level of Care Code 19393 SUB INP/OBS CARE 2/35MIN Diagnoses Gross hematuria R31.0 Urinary tract infection N39.0 Indwelling Peres catheter present Z97.8
[2023-01-07] MEDS: hydrALAZINE TAB 50 MG TAB PO SCH ×2 (08:30→20:49)
[2023-01-07] MEDS: predniSONE 2.5 MG TAB PO SCH (08:30)
[2023-01-07] MEDS: cloNIDine HCL 0.1 MG TAB PO SCH ×2 (08:30→20:49)
[2023-01-07] MEDS: predniSONE 5 MG TAB PO SCH (08:31)
[2023-01-07] MEDS: METOPROLOL SUCC 50MG EXT REL TAB PO SCH (08:31)
[2023-01-07] MEDS: HYDROXYCHLOROQUINE SULFATE 200 MG TAB PO SCH ×2 (08:31→20:49)
[2023-01-07] MEDS: CIPROFLOXACIN / D5W 400 MG/200 ML BAG IV SCH ×3 (10:44→20:57)
[2023-01-07] MEDS: AMITRIPTYLINE HCL 50 MG TAB PO SCH (20:49)
[2023-01-08] MEDS: LEVOTHYROXINE SODIUM 100 MCG TABLET PO SCH (06:15)
[2023-01-08 06:42] LABS: Basophils # (auto) 0.06 K/uL (0.00-0.20); Basophils % (auto) 0.8 %; Eosinophils # (auto) 0.25 K/uL (0.00-0.50); Eosinophils % (auto) 3.3 %; Hematocrit (blood only) 27.9 % (37.0-47.0); Hemoglobin 8.8 g/dl (12.0-16.0); Immature Granulocytes # (auto) 0.29 K/uL (0.01-0.20); Immature Granulocytes % (auto) 3.8 %; Lymphocytes # (auto) 1.27 K/uL (1.20-3.40); Lymphocytes % (auto) 16.7 %; Mean Corpuscular Hemoglobin 29.9 pg (25.0-34.0); Mean Corpuscular Hgb Conc 31.5 g/dL (32.0-36.0); Mean Corpuscular Volume 94.9 fL (80.0-100.0); Mean Platelet Volume 9.2 fL (9.4-12.4); Monocytes # (auto) 0.64 K/uL (0.11-0.59); Monocytes % (auto) 8.4 %; Platelet Count 187 K/uL (130-400); RDW Coefficient of Variation 16.5 % (11.5-14.5); RDW Standard Deviation 56.5 fL (36.4-46.3); Red Blood Count 2.94 M/uL (4.20-5.40); White Blood Count 7.61 K/ul (4.8-10.8)
[2023-01-08 07:08] LABS: Albumin Level 3.3 gm/dl (3.4-5.0); BUN Creatinine Ratio 27.4 (10-20); Calcium 8.4 mg/dl (8.6-10.3); Creatinine Clr Calc Pharmacy 29.7 ml/min; Est GFR (African American) 48.5 ml/min; Est GFR (Non-African American) 41.9 ml/min; Magnesium 1.8 mg/dl (1.7-2.4); Phosphorus 3.9 mg/dl (2.5-4.9); Potassium 4.6 mmol/L (3.5-5.1)
[2023-01-08] MEDS: HYDROXYCHLOROQUINE SULFATE 200 MG TAB PO SCH ×2 (08:43→20:43)
[2023-01-08] MEDS: hydrALAZINE TAB 50 MG TAB PO SCH ×2 (08:43→20:44)
[2023-01-08] MEDS: cloNIDine HCL 0.1 MG TAB PO SCH ×2 (08:43→20:42)
[2023-01-08] MEDS: METOPROLOL SUCC 50MG EXT REL TAB PO SCH (08:44)
[2023-01-08] MEDS: predniSONE 5 MG TAB PO SCH (08:44)
[2023-01-08] MEDS: predniSONE 2.5 MG TAB PO SCH (08:44)
[2023-01-08] MEDS: CIPROFLOXACIN / D5W 400 MG/200 ML BAG IV SCH ×2 (09:28→21:34)
--- NOTE | 2023-01-08 12:10 | Urology Progress Note ---
Date of Service January 08, 2023 Assessment & Plan (1) Gross hematuria: (2) Urinary tract infection: (3) Indwelling Peres catheter present: Plan Afebrile, vitals stable. Labs reviewedWBC 7.61, creatinine 1.17, hemoglobin 8.8 today (received PRBC transfusion 01/05 and 01/07). Urine culture grew Enterobacter, on Ciprofloxacin. Hematuria has cleared, was likely due to UTI, catheter irritation. Peres catheter draining clear yellow urine. Continue to monitor. Maintain Peres catheter until outpatient follow-up with urology service. Continue supportive care and antibiotic therapy. Urology will sign-off. Please contact us with any further questions, concerns, or changes in patient status. Admission and Anticipated Discharge Date Admission Date: January 05, 2023 Subjective Pt examined at bedside this AM. Awake, resting in bed on arrival. No acute distress. Pleasantly confused. Denies any pain or discomfort at present. Peres draining clear yellow urine with sediment. Denies fevers, chills, nausea, vomiting. Pt was seen by Dr. Underwood on 12/05/22 for cystoscopy and review of CT imaging. CT scan was nonconcerning outside of the bladder wall thickening. Cystoscopy revealed significant erythema at the bladder floor from the catheter but no obvious masses. The remainder of the bladder was normal. Review of Systems Constitutional: as per Subjective / HPI Gastrointestinal: as per Subjective / HPI Genitourinary: as per Subjective / HPI Physical Exam Constitutional: no acute distress Respiratory: no respiratory distress and no labored breathing Gastrointestinal (Abdomen): Percussion/Palpation: abdomen soft; abdomen nontender Skin: No visible rashes or lesions to exposed skin areas Neurologic: awake Psychiatric: Orientation: alert, oriented to person and cooperative Genitourinary: Peres catheter intact, draining clear yellow urine Results & Data Vital Signs (Past 12 Hours) Vital Signs Temp Pulse Resp BP Pulse Ox O2 Del Method 01/08/23 11:16 36.5 C 56 L 16 106/60 98 Room Air 01/08/23 09:00 Room Air 01/08/23 07:32 36.8 C 77 20 107/65 97 Room Air 01/08/23 03:00 36.5 C 59 L 20 115/70 98 Room Air PG Care Time/CCT Total # of Minutes Spent Total Time Spent with Patient: Total time spent is greater than 50% in coordination of care (as documented) at patient's floor/unit and/or counseling patient: Coding Level of Care Code 26721 SUB INP/OBS CARE 235MIN Diagnoses Gross hematuria R31.0 Urinary tract infection N39.0 Indwelling Peres catheter present Z97.8
--- NOTE | 2023-01-08 12:26 | Palliative Care Consultation ---
Date of Consultation January 08, 2023 Assessment & Plan (1) Palliative care encounter: I met with Mrs. Jones and spoke with her grandson, Butch, who lives in [place], by phone. Mrs. Jones is pleasantly confused but tells me that she was an avid golfer and very active before her debility from arthritis. She is not really able to do the things that she enjoys. I asked her what she does for enjoyment now and she told me, "nothing, really". Her grandson confirms this. He notes that she has had progressive decline and has been on "a hamster wheel" between [place] and [facility]. He does not feel that she has good quality of life. He tells me that years ago, when she felt better if you asked her how she felt about living the way she does now, she would not be happy about that. She has completed an advance directive in the past. He tells me that she does not want resuscitation and has said before that she would not want blood transfusion. We talked about completing a POLST to clarify her goals and reviewed POLST form. Per his instructions, POLST form indicates DNR/DNI, Comfort measures with hospitalization only if comfort needs cant be met at [facility]. He would want to consider antibiotics depending on the situation and would be agreeable to trial of hydration. He does not want urban designer artificial nutrition or hydration. Code status changed to DNR per this discussion. Discussed with Dr. Doss and RN. History of Present Illness Reason for Consultation: goals of care Attending Physician: Dionte Doss History of Present Illness 87 yo lady with rheumatoid arthritis, hypertension and dementia who resides at [facility], presented with gross hematuria and acute blood loss anemia. 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 Urine culture was positive for enterobacter. She had a CT which showed bladder wall thickening consistent with chronic outlet obstruction and has been seen by urology. She did require transfusion x 2 with hemoglobin on presentation and 6.8 after initial transfusion. Gross hematuria has cleared and hemoglobin has been stable today. She is awake and alert but confused. She tells me that she lives in [place] but has been living at [facility]. Per her grandson and POAButch, she was recently transferred from independent living to SNF due to functional decline. Allergies Allergy/AdvReac Type Severity Reaction Status Date / Time adhesive tape Allergy Unknown ON Verified 01/05/23 18:34 [email or web address] LIST infliximab [From Remicade] Allergy Unknown ON Verified 01/05/23 18:34 [facility] LIST Home Medications Medication Instructions Recorded Confirmed Type acetaminophen 500 mg tablet 500 mg PO QID pain 11/04/22 01/05/23 History amitriptyline 50 mg tablet 50 mg PO HS depression 11/04/22 01/05/23 History cholecalciferol (vitamin D3) 50 50 mcg PO QAM 11/04/22 01/05/23 History mcg (2,000 unit) tablet (Vitamin D3) cyanocobalamin (vitamin B-12) 1,000 mcg PO QAM 11/04/22 01/05/23 History 1,000 mcg tablet,extended release hydralazine 50 mg tablet 50 mg PO BID HTN 11/04/22 01/05/23 History hydroxychloroquine 200 mg tablet 200 mg PO BID rheumatoid arthritis 11/04/22 01/05/23 History levothyroxine 100 mcg tablet 100 mcg PO DAILYBB 11/04/22 01/05/23 History loperamide 2 mg capsule 2 mg PO Q4H PRN Diarrhea 11/04/22 01/05/23 History magnesium hydroxide 400 mg/5 mL 30 ml PO DAILY PRN If no BM x 3 11/04/22 01/05/23 History oral suspension (Milk of Magnesia) days metoprolol succinate 50 mg 50 mg PO QAM HTN 11/04/22 01/05/23 History tablet,extended release 24 hr prednisone 2.5 mg tablet 2.5 mg PO QAM RHEUMATOID ARTHRITIS 11/04/22 01/05/23 History prednisone 5 mg tablet 5 mg PO QAM RHEUMATOID ARTHRITIS 11/04/22 01/05/23 History spironolactone 25 mg tablet 25 mg PO QAM HTN 11/04/22 01/05/23 History tramadol 50 mg tablet 50 mg PO Q6H PRN Pain 11/04/22 01/05/23 History ascorbic acid (vitamin C) 500 mg 500 mg PO BID 01/05/23 01/05/23 History tablet (Vitamin C) clonidine HCl 0.1 mg tablet 0.1 mg PO BID 01/05/23 01/05/23 History ferrous sulfate 325 mg (65 mg 325 mg PO BID 01/05/23 01/05/23 History iron) tablet lisinopril 5 mg tablet 5 mg PO QAM 01/05/23 01/05/23 History Patient History Medical History Indwelling Thompson catheter present Acute kidney insufficiency Rheumatoid arthritis Depression Dementia HTN (hypertension), benign Urinary retention with incomplete bladder emptying Urinary incontinence Social History Smoking Status: Former smoker Hx Alcohol Use: No Hx Substance Use: No Preferred Language: Nepalese Communication Ability: Effective 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 Operator Required: No Beliefs That Will Affect Care: None Current Living Situation: Alone Current Living Situation Comment: unsure - initially she said she lived w/ her -pt is Feels Safe at Home: Yes Safety Concerns: Feels Safe At This Time Assistive Devices: Walker Assistive Devices Comment: thompson Review of Systems Review of Systems: ESAS Pain 0/3 Dyspnea 0/3 Drowsiness 0/3 Physical Exam Constitutional: no acute distress Respiratory: normal respiratory effort; no labored breathing Cardiovascular: Rate/Rhythm: regular rate and regular rhythm Musculoskeletal: arthritic deformities bilateral hands, right greater than left Neurologic: Speech / Cognition: + abnormal cognition Results & Data Vital Signs (Past 12 Hours) Vital Signs Temp Pulse Resp BP Pulse Ox O2 Del Method 01/08/23 11:16 97.7 F 56 L 16 106/60 98 Room Air 01/08/23 09:00 Room Air 01/08/23 07:32 98.2 F 77 20 107/65 97 Room Air 01/08/23 03:00 97.7 F 59 L 20 115/70 98 Room Air PG Care Time/CCT Total # of Minutes Spent Total Time Spent: 65 Total Time Spent with Patient: Total time spent is greater than 50% in coordination of care (as documented) at patient's floor/unit and/or counseling patient: goals of care, code status, POLST, family education and support, coordination of care Coding Level of Care Code 88772 INT INP/OBS CARE 2/55MIN Diagnoses Palliative care encounter Z51.5
[2023-01-08] MEDS: AMITRIPTYLINE HCL 50 MG TAB PO SCH (20:42)
--- NOTE | 2023-01-08 22:02 | Hospitalist Progress Note ---
Date of Service January 08, 2023 Assessment & Plan (1) Gross hematuria: Plan: associated Acute Blood loss anemia, s/p transfusion will give additional unit 01/07/23, for 2 u total iron and B 12 checked recently and replete urology eval for cystoscopy, npo now that hgb dropped again CT abd/pelvis in nov without significant issues culture pending on Ceftriaxone for UTI poa, anna sensitive Enterobacter but with resistance patterns antimicrobial pharmacist suggests cipro Continue above antibiotics. Patient continues to have hematuria. (2) HTN (hypertension), benign: Plan: chronic stable Continue clonidine, hydralazine and metoprolol succinate (3) Acute kidney injury: Plan: NICOLASA, be sure thompson is not occluded for cause, mary irriagaiton methods, avoid nephrotoxins suspect some dehydration also factor acute hyperkalemia Lokelma 10 mg p.o. x1 50 mils of dextrose 50%, followed by 10 units of regular insulin IV, and recheck potassium improved to 5.3 Hold spironolactone and lisinopril Plan Rheumatoid arthritis- Continue prednisone, no stress dosing at this time Continue hydroxychloroquine family POFatuma Rae feels that we are nearing a palliative state given her severe dementia, is willing to speak to palliative care about goals of care and possible POLST Admission and Anticipated Discharge Date Admission Date: January 05, 2023 Subjective Patient reports no new symptoms. Review of Systems Review of Systems: All systems reviewed & are unremarkable except as noted in HPI & below Physical Exam Physical Exam: pleasant and conversational but not oriented cardiac is regular, lungs are clear Results & Data Results & Data Vital Signs (Past 12 Hours) Vital Signs Temp Pulse Resp BP Pulse Ox O2 Del Method 01/08/23 19:21 37.1 C 69 20 121/72 96 Room Air 01/08/23 15:13 37.2 C 60 20 119/76 97 Room Air 01/08/23 11:16 36.5 C 56 L 16 106/60 98 Room Air PG Care Time/CCT Total # of Minutes Spent Total Time Spent with Patient: Total time spent is greater than 50% in coordination of care (as documented) at patient's floor/unit and/or counseling patient: Coding Level of Care Code 13891 SUB INP/OBS CARE 2/35MIN Diagnoses Gross hematuria R31.0 HTN (hypertension), benign I10 Acute kidney injury N17.9
[2023-01-09] MEDS: LEVOTHYROXINE SODIUM 100 MCG TABLET PO SCH (06:06)
[2023-01-09 07:02] LABS: BUN Creatinine Ratio 26.3 (10-20); Calcium 8.3 mg/dl (8.6-10.3); Creatinine Clr Calc Pharmacy 24.9 ml/min; Est GFR (African American) 40.1 ml/min; Est GFR (Non-African American) 34.6 ml/min; Potassium 4.4 mmol/L (3.5-5.1)
[2023-01-09 07:03] LABS: Hematocrit (blood only) 28.2 % (37.0-47.0); Hemoglobin 8.9 g/dl (12.0-16.0); Mean Corpuscular Hemoglobin 30.2 pg (25.0-34.0); Mean Corpuscular Hgb Conc 31.6 g/dL (32.0-36.0); Mean Corpuscular Volume 95.6 fL (80.0-100.0); Mean Platelet Volume 9.3 fL (9.4-12.4); Platelet Count 190 K/uL (130-400); RDW Coefficient of Variation 16.1 % (11.5-14.5); RDW Standard Deviation 55.3 fL (36.4-46.3); Red Blood Count 2.95 M/uL (4.20-5.40); White Blood Count 7.97 K/ul (4.8-10.8)
--- NOTE | 2023-01-09 07:51 | Urology Progress Note ---
Date of Service January 09, 2023 Assessment & Plan (1) Gross hematuria: (2) Urinary tract infection: (3) Indwelling Peres catheter present: Plan Afebrile, vitals stable. Labs reviewedWBC 7.97, creatinine 1.37, hemoglobin 8.9 today (received PRBC transfusion 01/05 and 01/07). Urine culture grew Enterobacter, on Ciprofloxacin. Contacted by nursing due to return of hematuria. Peres currently draining pink-tinged urine without clot. Hemoglobin stable. No intervention warranted. Maintain Peres catheter. Okay to hand irrigate as needed. Hematuria possibly due to UTI, catheter irritation. Will arrange outpatient follow-up with our service. Urology will sign off. Please call with any further questions/concerns. Admission and Anticipated Discharge Date Admission Date: January 05, 2023 Subjective Pt examined at bedside this AM. Awake, resting in bed on arrival. No acute distress. Pleasantly confused. Denies any pain or discomfort at present. Peres draining pink-tinged urine with small amount of sediment. No clots noted. Denies fevers, chills, nausea, vomiting. Pt was seen by Dr. Underwood on 12/05/22 for cystoscopy and review of CT imaging. CT scan was nonconcerning outside of the bladder wall thickening. Cystoscopy revealed significant erythema at the bladder floor from the catheter but no obvious masses. The remainder of the bladder was normal. Review of Systems Constitutional: as per Subjective / HPI Gastrointestinal: as per Subjective / HPI Genitourinary: as per Subjective / HPI Physical Exam Constitutional: no acute distress Pleasantly confused Respiratory: no respiratory distress and no labored breathing Gastrointestinal (Abdomen): Percussion/Palpation: abdomen soft; abdomen nontender Musculoskeletal: Head/Neck/Chest: normocephalic Neurologic: awake Psychiatric: Orientation: alert, oriented to person and cooperative Results & Data Vital Signs (Past 12 Hours) Vital Signs Temp Pulse Pulse Resp BP BP Pulse Ox 01/09/23 07:12 54 L 01/09/23 02:39 36.7 C 59 L 18 117/47 L 97 01/09/23 00:28 62 20 120/87 01/08/23 23:55 36.8 C 56 L 162/79 H 97 01/08/23 23:00 Pulse Ox O2 Del Method O2 Del Method 01/09/23 07:12 01/09/23 02:39 Room Air 01/09/23 00:28 01/08/23 23:55 Room Air 01/08/23 23:00 97 Room Air PG Care Time/CCT Total # of Minutes Spent Total Time Spent with Patient: Total time spent is greater than 50% in coordination of care (as documented) at patient's floor/unit and/or counseling patient: Coding Level of Care Code 31504 SUB INP/OBS CARE 25MIN Diagnoses Gross hematuria R31.0 Urinary tract infection N39.0 Indwelling Peres catheter present Z97.8
[2023-01-09] MEDS: hydrALAZINE TAB 50 MG TAB PO SCH ×2 (08:04→21:40)
[2023-01-09] MEDS: predniSONE 5 MG TAB PO SCH (08:04)
[2023-01-09] MEDS: predniSONE 2.5 MG TAB PO SCH (08:04)
[2023-01-09] MEDS: HYDROXYCHLOROQUINE SULFATE 200 MG TAB PO SCH ×2 (08:05→21:41)
[2023-01-09] MEDS: METOPROLOL SUCC 50MG EXT REL TAB PO SCH (08:05)
[2023-01-09] MEDS: cloNIDine HCL 0.1 MG TAB PO SCH ×2 (08:05→21:40)
[2023-01-09] MEDS ORDERED: SODIUM CHLORIDE 0.9% 1,000 ML IV SCH (10:00)
[2023-01-09] MEDS: CIPROFLOXACIN / D5W 400 MG/200 ML BAG IV SCH (10:20)
[2023-01-09] MEDS ORDERED: CIPROFLOXACIN / D5W 400 MG/200 ML BAG IV SCH (21:00)
[2023-01-09] MEDS: AMITRIPTYLINE HCL 50 MG TAB PO SCH (21:43)
--- NOTE | 2023-01-09 22:28 | Hospitalist Progress Note ---
Date of Service January 09, 2023 Assessment & Plan (1) Gross hematuria: Plan: associated Acute Blood loss anemia, s/p transfusion will give additional unit 01/07/23, for 2 u total iron and B 12 checked recently and replete urology eval for cystoscopy, npo now that hgb dropped again CT abd/pelvis in nov without significant issues culture pending on Ceftriaxone for UTI poa, anna sensitive Enterobacter but with resistance patterns antimicrobial pharmacist suggests cipro Continue above antibiotics. Patient reports having less hematuria. (2) HTN (hypertension), benign: Plan: chronic stable Continue clonidine, hydralazine and metoprolol succinate (3) Acute kidney injury: Plan: NICOLASA, be sure thompson is not occluded for cause, mary irriagaiton methods, avoid nephrotoxins suspect some dehydration also factor acute hyperkalemia Lokelma 10 mg p.o. x1 50 mils of dextrose 50%, followed by 10 units of regular insulin IV, and recheck potassium improved to 5.3 Hold spironolactone and lisinopril Plan Rheumatoid arthritis- Continue prednisone, no stress dosing at this time Continue hydroxychloroquine family POA Rae: transition patient to hospice at discharge. Admission and Anticipated Discharge Date Admission Date: January 05, 2023 Subjective Patient remains forgetful. Review of Systems Review of Systems: Unobtainable due to cognitive status Physical Exam Physical Exam: pleasant and conversational but not oriented cardiac is regular, lungs are clear Thompson bag: brownish urine. Results & Data Results & Data Vital Signs (Past 12 Hours) Vital Signs Temp Pulse Pulse Resp BP Pulse Ox O2 Del Method 01/09/23 19:27 36.8 C 63 18 138/73 96 Room Air 01/09/23 15:26 36.7 C 67 18 101/82 95 Room Air 01/09/23 15:00 59 L 01/09/23 11:34 36.6 C 55 L 16 108/63 97 Room Air PG Care Time/CCT Total # of Minutes Spent Total Time Spent with Patient: Total time spent is greater than 50% in coordination of care (as documented) at patient's floor/unit and/or counseling patient: Coding Level of Care Code 36821 SUB INP/OBS CARE 2/35MIN Diagnoses Gross hematuria R31.0 HTN (hypertension), benign I10 Acute kidney injury N17.9
[2023-01-10 08:15] LABS: Hematocrit (blood only) 28.5 % (37.0-47.0); Hemoglobin 9.2 g/dl (12.0-16.0); Mean Corpuscular Hemoglobin 30.3 pg (25.0-34.0); Mean Corpuscular Hgb Conc 32.3 g/dL (32.0-36.0); Mean Corpuscular Volume 93.8 fL (80.0-100.0); Mean Platelet Volume 9.6 fL (9.4-12.4); Platelet Count 192 K/uL (130-400); RDW Standard Deviation 54.5 fL (36.4-46.3); Red Blood Count 3.04 M/uL (4.20-5.40); White Blood Count 8.13 K/ul (4.8-10.8)
[2023-01-10] MEDS: predniSONE 2.5 MG TAB PO SCH (08:21)
[2023-01-10] MEDS: METOPROLOL SUCC 50MG EXT REL TAB PO SCH (08:21)
[2023-01-10] MEDS: predniSONE 5 MG TAB PO SCH (08:21)
[2023-01-10] MEDS: LEVOTHYROXINE SODIUM 100 MCG TABLET PO SCH (08:22)
[2023-01-10] MEDS: HYDROXYCHLOROQUINE SULFATE 200 MG TAB PO SCH (08:22)
[2023-01-10] MEDS: hydrALAZINE TAB 50 MG TAB PO SCH (08:22)
[2023-01-10] MEDS: cloNIDine HCL 0.1 MG TAB PO SCH (08:23)
[2023-01-10 08:40] LABS: BUN Creatinine Ratio 26.1 (10-20); Calcium 8.2 mg/dl (8.6-10.3); Creatinine Clr Calc Pharmacy 28.8 ml/min; Est GFR (African American) 47.5 ml/min; Potassium 4.2 mmol/L (3.5-5.1)
--- NOTE | 2023-01-10 13:55 | Discharge Summary ---
Date of Service January 10, 2023 Admission HPI Per Admitting Provider The patient is a an 87-year-old female with a past medical history including rheumatoid arthritis, depression, anemia, urinary incontinence, urinary retention with incomplete bladder emptying, chronic indwelling Thompson catheter, dementia, hypertension, urinary tract infection. She lives in [place], and drives to [place] to get her medical care. She has noticed increased bleeding into her Thompson over the past 2 to 3 weeks. She has has not been eating and drinking as well as usual during the interval of time. She reports that today she was feeling more ill, and called her moving van driver, who brought her to [facility] for evaluation. Significant laboratories: WBC 13.11, hemoglobin 6.4, hematocrit 21.2, sodium 135, potassium 6.2, bicarb 19, creatinine 1.66, glucose 141, BUN 49 From the ED the patient see the following, calcium gluconate 1 g IV, NSS 500 mils bolus, and 1 unit PRBCs Principal Diagnosis gross hematuria Discharge Exam pleasant and conversational but not oriented cardiac is regular, lungs are clear Thompson bag: brownish urine. Discharge Data Allergies Allergy/AdvReac Type Severity Reaction Status Date / Time adhesive tape Allergy Unknown ON Verified 01/05/23 18:34 [facility] LIST infliximab [From Remicade] Allergy Unknown ON Verified 01/05/23 18:34 [facility] LIST Consultations 01/05/23 19:49 ED Decision to Admit Stat 01/05/23 21:07 Consult Urology Routine 01/07/23 14:34 Consult Palliative Care Routine Hospital Course (1) Gross hematuria: associated Acute Blood loss anemia, s/p transfusion will give additional unit 01/07/23, for 2 u total iron and B 12 checked recently and repleted urology eval for cystoscopy: no intervention needec as per Urology CT abd/pelvis in nov without significant issues Patient doris had hematuria from UTI Catheter exhcanged culture anna sensitive Enterobacter but with resistance patterns antimicrobial pharmacist suggests cipro Hematuria has improved, will discharge and complete treatment course with cipro. (2) HTN (hypertension), benign: chronic stable Continue clonidine, hydralazine and metoprolol succinate (3) Acute kidney injury: NICOLASA, be sure thompson is not occluded for cause, mary irriagaiton methods, avoid nephrotoxins suspect some dehydration also factor acute hyperkalemia Mallory 10 mg p.o. x1 improved. Plan Rheumatoid arthritis- Continue prednisone, no stress dosing at this time Continue hydroxychloroquine family POA Butch: transition patient to hospice at discharge. Total Time Total Time Spent Total Time Spent (In Minutes): 32 Discharge Plan Discharge Items Patient Disposition: Transfer Senior Living Fac Reason For Visit: GROSS HEMATURIA, SYMPTOMATIC ANEMIA, HYPERKALEMIA Discharge Diagnosis: hematuria Activity: Resume your previous activity Non-emergency contact: Primary Care Provider Call non-emergency contact if: you have any medication questions Follow-up/Referrals: Ivy Talley DO [Primary Care Provider] - Diet: Dialysis Renal Addtl Attending Provider Instructions: Plan to transition to comfort care over at SNF POLST form indicates DNR/DNI, Comfort measures with hospitalization only if comfort needs cant be met at SNF. He would want to consider antibiotics depending on the situation and would be agreeable to trial of hydration. He does not want skilled nursing artificial nutrition or hydration. maintain thompson cathter, hand irrigate if needed, WIll need followup. IF patient is comofrt based, may consider voiding trial. Pending Studies at Discharge: No Stand-Alone Forms: [facility] Skilled Items Patient informed of condition?: Yes DNR: Yes (DNR/DNI) Discharge Level of Care: Skilled Communicable Disease: No Discharge Prognosis: Stable Lines: None Urinary Catheter: Yes Medications and DC Order Prescriptions: New ciprofloxacin HCl [Cipro] 500 mg tablet 500 mg PO PM Qty: 2 0RF Rx Instructions: continue for 2 more doses Continued cyanocobalamin (vitamin B-12) 1,000 mcg tablet extended release 1,000 mcg PO QAM loperamide 2 mg Capsule 2 mg PO Q4H PRN (Reason: Diarrhea) Rx Instructions: administer after each loose stool until symptoms controlled; do not exceed 8 mg per 24 hrs metoprolol succinate 50 mg tablet extended release 24 hr 50 mg PO QAM prednisone 5 mg tablet 5 mg PO QAM Rx Instructions: TOTAL DOSE 7.5 MG--TAKES WITH 2.5 MG TAB. tramadol 50 mg Tablet 50 mg PO Q6H PRN (Reason: Pain) amitriptyline 50 mg tablet 50 mg PO HS acetaminophen 500 mg tablet 500 mg PO QID levothyroxine 100 mcg tablet 100 mcg PO DAILYBB magnesium hydroxide [Milk of Magnesia] 400 mg/5 mL Suspension 30 ml PO DAILY PRN (Reason: If no BM x 3 days) prednisone 2.5 mg tablet 2.5 mg PO QAM Rx Instructions: TOTAL DOSE 7.5 MG--TAKES WITH 5 MG TAB. hydralazine 50 mg tablet 50 mg PO BID MDD Hold if SBP less than 100 hydroxychloroquine 200 mg tablet 200 mg PO BID Hold Instructions: Resume on 11/13/22. HOLD while taking Cipro for your UTI as these drugs interact. cholecalciferol (vitamin D3) [Vitamin D3] 50 mcg (2,000 unit) Tablet 50 mcg PO QAM clonidine HCl 0.1 mg Tablet 0.1 mg PO BID ascorbic acid (vitamin C) [Vitamin C] 500 mg Tablet 500 mg PO BID ferrous sulfate 325 mg (65 mg iron) Tablet 325 mg PO BID Discontinued spironolactone 25 mg tablet 25 mg PO QAM lisinopril 5 mg tablet 5 mg PO QAM Discharge Orders: Discharge Order (Routine); Ordered 01/10/23 Ordered By: Dionte Doss Admission Data Admit Date/Time: 01/05/23 21:21 Attending Provider: Dionte Doss Admit Provider: Horace Bush Primary Care Provider: Ivy Talley Other Providers: Horace Bush; Stephan Obrien; Kya Torres Other Interventions: Discharge Summary Assessment (RN) Last Done: 01/10/23 13:21 Coding Level of Care Code 87383 INP/OBS DISCH >30 MIN Diagnoses Gross hematuria R31.0 HTN (hypertension), benign I10 Acute kidney injury N17.9
== END 2023-01-10 13:50 | DRG 812 ==
LOC: ED 15:41 → 2E 21:21 → SUATTDRO 21:21 → 2E 22:41